=== PATIENT | male | born 1955 | race Caucasian/White ===

== ENCOUNTER 2016-09-17 13:07 | Emergency (ER) | payer OTHER ==
[2016-09-17 15:03] VITALS: BP 119/74
--- NOTE | 2016-09-17 16:15 | UC ---
Respiratory Complaint HPI - HPI Summary HPI Summary: pt c/o of wheezing, cough and "burning" in chest" URI symptoms began ~ 1 week ago. 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 - History of Current Complaint Chief Complaint: UCRespiratory Stated Complaint: SINUS,COUGH-ASTHMA Time Seen by Provider: 09/17/16 15:43 Hx Obtained From: Patient Onset/Duration: Gradual Onset, Lasting Days Timing: Constant Severity Initially: Mild Severity Currently: Mild Character: Cough: Productive Aggravating Factors: Exertion, Deep Breaths, Recumbent Position Associated Signs And Symptoms: Positive: Wheezing, URI, Nasal Congestion - Risk Factors Pseudomonas Risk Factors: Chronic Lung Disease - Allergies/Home Medications Allergies/Adverse Reactions: Allergies Allergy/AdvReac Type Severity Reaction Status Date / Time Aspirin Allergy Difficulty Verified 09/17/16 15:04 Breathing and Hives NSAIDs Allergy Difficulty Verified 09/17/16 15:04 Breathing and Hives Home Medications: Home Medications Mepolizumab [Nucala] 100 mg SUBCUT MONTHLY 09/17/16 [History Confirmed 09/17/16] Montelukast Sodium TAB* [Singulair 10 MG TAB*] 10 mg PO DAILY 09/17/16 [History Confirmed 09/17/16] Tiotropium CAP.INH* [Spiriva CAP.INH*] 1 cap.inh INH DAILY 09/17/16 [History Confirmed 09/17/16] predniSONE TAB* [Deltasone TAB*] 2.5 mg PO DAILY 09/17/16 [History Confirmed 11/28] PMH/Surg Hx/FS Hx/Imm Hx Previously Healthy: No - see PMH Endocrine History Of: Denies: Thyroid Disease Cardiovascular History Of: Denies: Hypertension Respiratory History Of: Reports: Asthma, Pulmonary Embolism - 2014 - on xarelto that was d/c'd by velia in 08/29 and followed by velia. GI/ History Of: Denies: Ulcer Neurological History Of: Denies: CVA Psychological History Of: Denies: Anxiety Cancer History Of: Denies: Lung Cancer - Surgical History Surgical History: Yes Surgery Procedure, Year, and Place: Bilateral Cataract Extraction, 2011;. C3 C4 C5 Fusion and Plate, 2005 - Family History Known Family History: Positive: Cardiac Disease - Social History Lives: With Family Alcohol Use: None Substance Use Type: None Smoking Status (MU): Never Smoked Tobacco - Immunization History Most Recent Influenza Vaccination: July 2015 Review of Systems Constitutional: Fatigue Skin: Negative Eyes: Negative ENT: Negative Respiratory: Shortness Of Breath, Cough Cardiovascular: Negative Gastrointestinal: Negative Genitourinary: Negative Motor: Negative Neurovascular: Negative Musculoskeletal: Negative Neurological: Negative Psychological: Negative All Other Systems Reviewed And Are Negative: Yes Physical Exam Triage Information Reviewed: Yes Appearance: Well-Appearing Vital Signs: Initial Vital Signs Temp 97.5 F 09/17/16 15:00 Pulse 80 09/17/16 15:00 Resp 16 09/17/16 15:00 BP 119/74 09/17/16 15:00 Pulse Ox 99 09/17/16 15:00 Vital Signs Reviewed: Yes Eye Exam: Normal ENT Exam: Other ENT: Positive: Nasal congestion Neck exam: Normal Respiratory Exam: Other Respiratory: Positive: Wheezing Cardiovascular Exam: Normal Musculoskeletal Exam: Normal Neurological Exam: Normal Psychological Exam: Normal Skin Exam: Normal UC Diagnostic Evaluation - Laboratory O2 Sat by Pulse Oximetry: 99 Respiratory Course/Dx - Differential Dx/Diagnosis Differential Diagnosis/HQI/PQRI: Bronchitis, Exacerbation Of COPD Provider Diagnoses: Bronchitis Discharge - Discharge Plan Condition: Stable Disposition: HOME Prescriptions: DOXYcycline CAP(*) [DOXYcycline 100MG CAP(*)] 100 mg PO BID #20 cap Patient Education Materials: Acute Bronchitis (ED) Referrals: Juan You MD [Primary Care Provider] -
== END 2016-09-17 16:20 | disposition home or self-care (01) ==
LOC: UCCORT 13:07
DX: J40 Bronchitis, not specified as acute or chronic (principal); Z98.42 Cataract extraction status, left eye; Z98.41 Cataract extraction status, right eye; Z88.6 Allergy status to analgesic agent
CPT/HCPCS: 99212; G0463

== ENCOUNTER 2019-03-23 13:07 | Emergency (ER) | payer OTHER ==
[2019-03-23 13:43] VITALS: BP 106/56
--- NOTE | 2019-03-23 13:53 | UC ---
Lower Extremity/Ankle HPI - HPI Summary HPI Summary: LEFT FOOT INJURY. 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 PAIN IS NOT IMPROVING. HAS BEEN ICING. - History of Current Complaint Chief Complaint: UCLowerExtremity Stated Complaint: L FOOT INJ Time Seen by Provider: 03/23/19 13:48 Hx Obtained From: Patient Onset/Duration: Sudden Onset, Lasting Days Severity Initially: Severe Severity Currently: Severe Pain Intensity: 9 Aggravating Factor(s): Standing, Ambulation Alleviating Factor(s): Nothing Able to Bear Weight: Yes - Allergies/Home Medications Allergies/Adverse Reactions: Allergies Allergy/AdvReac Type Severity Reaction Status Date / Time acetaminophen Allergy Unknown difficulty Verified 03/23/19 13:36 breathing and itching aspirin Allergy Unknown breathing Verified 03/23/19 13:33 difficultly NSAIDS (Non-Steroidal Allergy Unknown breathing Verified 03/23/19 13:33 Anti-Inflamma difficulty Home Medications: Home Medications predniSONE TAB* [Deltasone TAB*] 5 mg PO DAILY 03/23/19 [History Confirmed 03/23] PMH/Surg Hx/FS Hx/Imm Hx Previously Healthy: Yes - Surgical History Surgical History: Yes Surgery Procedure, Year, and Place: Bilateral Cataract Extraction, 2011;. C3 C4 C5 Fusion and Plate, 2005. SINUS SURGERY- JANUARY 2019 - Family History Known Family History: Positive: None, Cardiac Disease - Social History Alcohol Use: None Substance Use Type: None Smoking Status (MU): Never Smoked Tobacco - Immunization History Most Recent Influenza Vaccination: July 2015 Review of Systems All Other Systems Reviewed And Are Negative: Yes Musculoskeletal: Positive: Arthralgia, Decreased ROM, Edema, Myalgia Physical Exam Triage Information Reviewed: Yes Appearance: Well-Appearing, Well-Nourished, Pain Distress Vital Signs: Initial Vital Signs Temp 99.1 F 03/23/19 13:36 Pulse 58 03/23/19 13:36 Resp 16 03/23/19 13:36 BP 106/56 03/23/19 13:36 Pulse Ox 98 03/23/19 13:36 Vital Signs Reviewed: Yes Eye Exam: Normal ENT Exam: Normal Dental Exam: Normal Neck exam: Normal Respiratory Exam: Normal Cardiovascular Exam: Normal Abdominal Exam: Normal Bowel Sounds: Positive: Present Musculoskeletal: Positive: No Edema, Strength Limited @ - hard to extend toes, ROM Limited @ - with inversion and eversion due to pain, Neurological Exam: Normal Psychological Exam: Normal Skin Exam: Normal Lower Extremity Course/Dx - Course Course Of Treatment: hx obtained, exam performed ,meds reviewed, xray obtained neg for fracture - Differential Dx/Diagnosis Differential Diagnosis/HQI/PQRI: Contusion, Fracture (Closed), Sprain, Strain Provider Diagnosis: Contusion of foot, left Discharge - Sign-Out/Discharge Documenting (check all that apply): Patient Departure All imaging exams completed and their final reports reviewed: No Studies - Discharge Plan Condition: Stable Disposition: HOME Patient Education Materials: Foot Contusion (ED) Referrals: Rock Moreau MD [Primary Care Provider] - Scott Thomas MD [Medical Doctor] - Additional Instructions: 1. use the jesús and post op shoe for support. 2. Hot and cold foot soaks to help increase the circulation 3. follow up with orthopedics if not improving - Billing Disposition and Condition Condition: STABLE Disposition: Home - Attestation Statements Provider Attestation: I was available for consult. This patient was seen by the DINA. The patient was not presented to , seen by or examined by ak -Elton Carvajal MD
--- OUTSIDE RECORDS SUMMARY | 2019-03-23 15:04 | XMS REPORT | Continuity of Care Document ---
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 [employer] Unavailable Rock Moreau MD Primary Care Physician Unavailable Payers Date Identification Numbers Payment Provider Subscriber Policy Number: [id number] [employer] Keegan Graham PayID: [id number] [address] [place] [address] Problems Active Problems Provider Date Arthralgia of the ankle and/or foot Terrance Drake MD Onset: 03/30/2011 Dyspnea Candace Lorenzana ANP Onset: 12/21/2014 Sleep dysfunction with sleep stage Candace Lorenzana ANP Onset: 12/21/2014 disturbance Pulmonary embolism Candace Lorenzana ANP Onset: 12/21/2014 Acute bronchitis Robel Tejeda MD Onset: 12/21/2014 H/O: pulmonary embolus Ary Mondragon DO Onset: 07/28/2015 Asthma without status asthmaticus Ary Mondragon DO Onset: 07/28/2015 Chronic fatigue syndrome Byron Vasquez M.D. Onset: 11/01/2016 Uncomplicated severe persistent asthma Byron Vasquez M.D. Onset: 11/01/2016 Taking medication Byron Vasquez M.D. Onset: 11/01/2016 Hyperlipidemia screening Byron Vasquez M.D. Onset: 11/01/2016 Encounter for screening for nutritional Byron Vasquez M.D. Onset: 11/01/2016 disorder Tic disorder Byron Vasquez M.D. Onset: 11/01/2016 Vitamin D deficiency Byron Vasquez M.D. Onset: 11/18/2016 Headache Byron Vasquez M.D. Onset: 02/10/2017 Sleep disorder Byron Vasquez M.D. Onset: 02/10/2017 Depressive disorder Byron Vasquez M.D. Onset: 02/10/2017 Screening for malignant neoplasm of prostate Byron Vasquez M.D. Onset: 03/20 Immunization Byron Vasquez M.D. Onset: 05/31/2017 Gastroesophageal reflux disease Byorn Vasquez M.D. Onset: 09/01/2017 Benign prostatic hypertrophy with outflow Byron Vasquez M.D. Onset: 2017 obstruction Long-term current use of systemic steroid Byron Vasquez M.D. Onset: 2017 Mild intermittent asthma Marlin Martini PA Onset: 10/23/2018 Allergic rhinitis Marlin Martini PA Onset: 10/23/2018 Exacerbation of intermittent asthma Marlin Martini PA Onset: 11/14/2018 Disorder of bone Rock Moreau MD Onset: 01/17/2019 Family History Date Family Member(s) Observation Comments : (age 86 Years) Father due to Dementia/A-Fib Father Dementia Father Pacemaker : (age 74 Years) Mother due to Heart Attack/Cancer Mother Cancer Mother Arthritis Mother Afib Social History Type Date Description Comments Sex Unknown Marital Status Lives With Lives With Children Occupation [employer] Tobacco Use Start: Unknown Never Smoked Cigarettes ETOH Use Denies alcohol use Tobacco Use Start: Unknown Patient denies history of smoking Recreational Drug Use Denies Drug Use Smoking Status Reviewed: 02/27/19 Patient denies history of smoking Exercise Type/Frequency Does not exercise Allergies, Adverse Reactions, Alerts Active Allergies Reaction Severity Comments Date Aspirin 05/01/2009 Tequin 05/01/2009 NSAIDS unknown 03/28/2014 Advair Diskus 02/09/2016 Nucala rash, fatigue 11/10/2016 Leflunomide Anaphylaxis Severe 11/01/2016 Acetaminophen EXACERBATES HIS ASTHMA 11/01/2016 Inactive Allergies Nsaid 05/01/2009 Medications Active Medications SIG Qnty Indications Ordering Date Provider Fluphenazine HCL 1 tab by mouth 30tabs F95.8 Rock Moreau MD 02/27/2019 every day as 1mg Tablets directed Magnesium 1 tab by mouth 10caps E83.42 Rock Moreau MD 01/17/2019 300mg every day as Capsules directed Calcium 1200 OTC Eddy Michele, 10/23/2018 [id number] Chewtabs Prednisone take 1 tablet once 30tabs Eddy Michele, 06/04/2018 5mg a day. Tablets Omeprazole take 1 tablet 30caps K21.9 Eddy Michele, 08/02/2017 40mg daily[address] Neff Allergy 1 spray both 9.900ml J30.89 Eddy Michele, 08/02/2017 Relief nostrils every day. 50mcg/Act Suspension Nebulizer please provide 1units J45.50 Eddy Michele, 02/10/2017 Kit/Tubing/Mouthpie patient with 1 kit. ce nebulizer, tubing, Kit mouth piece. diagnosis: copd Portable Compressor J45.50 Eddy Michele, 02/10/2017 Nebulizer MD Vences Ventolin HFA Take 2 Puffs Every 8units Eddy Michele, 07/15/2016 6 Hours as Needed 108(90Base) mcg/Act For Shortness Of Aerosol Breath. Nucala 100 mg subcutaneous 1units Eddy Michele, 06/27/2016 100mg every 4 weeks. Solution Rec Epinephrine Use as directed for 2units Eddy Michele, 02/24/2016 severe asthma 0.3mg/0.3ML exacerbation. Solution Auto-Inject Symbicort 1 twice puff twice 10.200gm Eddy Michele, 02/12/2016 a day 160-4.5mcg/Act Aerosol Spiriva Respimat take 2 puffs once 4gm Eddy Michele, 02/12/2016 daily. 1.25mcg/Act Aerosol Singulair take 1 tablet once 90tabs J45.50 Eddy Michele, 02/02/2016 10mg daily. Tablets Vitamin D-[address] Kinney Maximum Strength Pedro/OTC 1000Unit Tablets Albuterol Sulfate nebulized every 6 Unknown hours as needed (2.5mg/3ML) 0.083% Nebulizer History Medications Prednisone take 2 tablet in 10tabs J45.21 Eddy Michele, 11/14/2018 - 20mg Tablets the morning for MD 01/17/2019 five days Azithromycin take two tablets 6tabs Eddy Michele, 11/14/2018 - 250mg today, then one a 01/17/2019 Tablets day for the next four days. Cefuroxime Axetil 1 tab by mouth 14tabs Santo, 10/31/2017 - 500mg twice a day Kelsey Hagan Unknown Tablets Prednisone 2 tab by mouth 10tabs Santo, 10/31/2017 - 20mg Tablets every day for 5 Kelsey Hagan 06/04/2018 days Prednisone take three tablets 90tabs J45.20 Eddy Michele, 10/02/2017 - 2.5mg by mouth once daily 06/04/2018 Tablets Prednisone take 1 tablet 30tabs Eddy Michele, 08/02/2017 - 10mg Tablets daily. 10/02/2017 Prednisone take three tablets 90tabs Eddy Michele, 05/31/2017 - 2.5mg by mouth once daily 08/02/2017 Tablets Dhea 2 by mouth every Byron Vasquez, 03/20/2017 - Tablets day M.D. Unknown Sertraline HCL 1 By Mouth Every 90tabs F32.89 Byron Vasquez, 03/20/2017 - 100mg Day M.D. 01/17/2019 Tablets Vitamin D3 1 by mouth every 90caps Byron Vasquez, 02/10/2017 - 2000Unit day M.D. Unknown Capsules Sertraline HCL 1 by mouth every 30tabs F32.89 Byron Vasquez, 02/10/2017 - 50mg day M.D. 03/20/2017 Tablets Vitamin D 1 tab by mouth once 4caps E55.9 Byron Vasquez, 11/18/2016 - (Ergocalciferol) a week for 4 weeks M.D. 02/10/2017 [id number] Capsules Prednisone take 1 tablet 30tabs Eddy Michele, 11/10/2016 - 10mg Tablets daily. 05/31/2017 Flonase Allergy 1 spray to both 9.900ml Eddy Michele, 11/03/2016 - Relief nostrils daily. MD Kinney 50mcg/Act Suspension Prednisone Take 1 tablet 30tabs Eddy Michele, 09/05/2016 - 2.5mg daily. MD Kinney Tablets Prednisone Take total of 7.5 30tabs Eddy Michele, 08/04/2016 - 5mg Tablets mg once daily. MD Kinney Prednisone Take total of 7.5 30tabs Eddy Michele, 08/04/2016 - 2.5mg mg once daily. 09/05/2016 Tablets Nasal Swab Nasal swab for R69 Eddy Michele, 05/25/2016 - Influenza A/b MD Kinney Nucala 100 mg subcutaneous 1units Eddy iMchele, 04/27/2016 - 100mg Solution every 4 weeks. 05/25/2016 Rec Prednisone Take 1 tablet 3 90tabs Eddy Michele, 03/14/2016 - 5mg Tablets times daily. MD Kinney Prednisone Take 30 mg for 1 35tabs J45.50 Eddy Michele, 02/23/2016 - 10mg Tablets week followed by 20 Unknown mg for 1 week. Prednisone Take 15 mg daily. qs J45.50 Eddy Michele, 02/23/2016 - 10mg Tablets 03/14/2016 Epinephrine Use as directed for 2units J45.50 Eddy Michele, 02/23/2016 - severe asthma 02/24/2016 0.15mg/0.15ML attack. Solution Auto-Inject Prednisone take 40 mg once 20tabs Eddy Michele, 02/17/2016 - 10mg Tablets daily for 5 days. MD Kinney Dulera take 1 puff twice 8.800gm J45.50 Eddy Michele, 02/02/2016 - 200-5mcg/Act daily. rinse mouth MD Kinney Aerosol after use. Cromolyn Sodium four times a day Alanna, 01/08/2016 - via DO Gregoria Banerjee 20mg/2ML Nebulizer Vicodin 1-2 po q4h prn 30tabs Vidal, 03/30/2011 - 5-500mg Tablets Terrance Jarvis MD Unknown Skelaxin prn Vidal, 03/30/2011 - 800mg Tablets Terrance Jarvis MD Unknown Prednisone po qd Vidal, 03/30/2011 - 20mg Tablets Terrance Jarvis MD Unknown Ventolin HFA prn Vidal, 03/30/2011 - Terrance Jarvis MD 07/15/2016 108(90Base) mcg/ac Aerosol Nexium 1 po qd 30caps Vidal, 03/30/2011 - 40mg Capsules DR Terrance Jarvis MD Unknown Vitamin B-12 1 tabl by mouth Unknown - 500mcg daily Unknown Tablets Sub Clonidine HCL TK 1 T PO D Unknown - 0.1mg 03/20/2017 Tablets Ziprasidone HCL 1 cap by mouth Unknown - 20mg daily 02/10/2017 Capsules Metaproterenol 3 Pills Once A Week Unknown - Sulfate Unknown 10mg Tablets Omeprazole 1 by mouth every Unknown - 20mg day 08/02/[address] Newman by mouth every day Unknown - 40mg Tablets 01/08/2016 Xarelto 1 by mouth every Unknown - 20mg Tablets day 01/22/2016 Tamsulosin HCL by mouth every day Unknown - 0.4mg Unknown Capsules Prednisone Take 3 tablets 90tabs Eddy Michele, - 5mg Tablets daily. 08/04/2016 Prevacid Unknown - 03/30/2011 Singulair 1 po qd Unknown - 10mg 07/28/2015 Nasonex Unknown - Unknown Pulmicort Unknown - Unknown Albuter Unknown - Unknown Medications Administered in Office Medication SIG Qnty Indications Ordering Provider Date Injection, mepolizumab, 1mg Eddy Michele MD 09/14/2018 Injection Injection, mepolizumab, 1mg Marlin Martini PA 07/10/2018 Injection Injection, bossmanolizumab, 1mEddy aTn MD 06/04/2018 Injection Injection, mepolizumab, 1mg Eddy Michele MD 03/09/2018 Injection Theraputic Or Diagnostic Eddy Michele MD 03/09/2018 Injection Injection Injection, bossmanolizumanjitb, 1mEddy Tan MD 02/07/2018 Injection Theraputic Or Diagnostic Eddy Michele MD 02/07/2018 Injection Injection Injection, mepolizurosanna, 1mEddy Tan MD 01/02/2018 Injection Theraputic Or Diagnostic Eddy Michele MD 01/02/2018 Injection Injection Injection, mepolizumanjitb, 1mg Eddy Michele MD 12/01/2017 Injection Theraputic Or Diagnostic Eddy Michele MD 12/01/2017 Injection Injection Theraputic Or Diagnostic Eddy Michele MD 11/02/2017 Injection Injection Injection, kristianzurosanna, 1mEddy Tan MD 08/30/2017 Injection Theraputic Or Diagnostic Eddy Michele MD 08/30/2017 Injection Injection Theraputic Or Diagnostic Eddy Michele MD 08/08/2017 Injection Injection Theraputic Or Diagnostic Eddy Michele MD 07/04/2017 Injection Injection Theraputic Or Diagnostic Eddy Michele MD 05/31/2017 Injection Injection Injection, bossmanolizumab, 1mg Eddy Michele MD 03/27/2017 Injection Injection, kristianzumab, 1mg Eddy Michele MD 03/17/2017 Injection Injection, kristianzurosanna, 1mEddy Tan MD 02/09/2017 Injection Injection, mepolizumab, 1mEddy Tan MD 01/10/2017 Injection Injection, bossmanolizumab, 1mg Eddy Michele MD 11/03/2016 Injection Injection, didi, 1mEddy Tan MD 09/05/2016 Injection Depomedrol 40mg/1cc Marisel Pereyra MD 05/01/2009 (methylprednisolone acetate) Injection Immunizations CPT Code Status Date Vaccine Lot # [id number] Given 06/04/2018 Influenza Virus Vaccine, Quadrivalent, 36 Mos+, .5ML [id number] Given 05/31/2017 Influenza Virus Vaccine Quadrivalent Iiv4 Split [id number] Preser Free Id [id number] Given 07/14/2016 Influenza Vaccine (Fluzone) Age 3 And Older Vital Signs Date Vital Result Comment 02/27/2019 4:27pm BP Systolic 116 mmHg BP Diastolic 66 mmHg Heart Rate 79 /min Respiratory Rate 18 /min Height 71 inches 5'11" Weight 215.00 lb BMI (Body Mass Index) 30.0 kg/m2 BSA (Body Surface Area) 2.17 m2 Hood body weight in kilograms 78 kg O2 % BldC Oximetry 97 % Ra 01/17/2019 1:18pm BP Systolic 118 mmHg BP Diastolic 68 mmHg Heart Rate 76 /min Respiratory Rate 18 /min Height 71 inches 5'11" Weight 217.25 lb BMI (Body Mass Index) 30.3 kg/m2 BSA (Body Surface Area) 2.18 m2 Hood body weight in kilograms 78 kg O2 % BldC Oximetry 96 % Ra 11/14/2018 2:11pm BP Systolic Sitting Right Arm 118 mmHg BP Diastolic Sitting Right Arm 92 mmHg Body Temperature 98.1 F Heart Rate 90 /min Respiratory Rate 18 /min Height 71 inches 5'11" Weight 218.00 lb BMI (Body Mass Index) 30.4 kg/m2 BSA (Body Surface Area) 2.19 m2 Hood body weight in kilograms 78 kg O2 % BldC Oximetry 95 % Ora 10/23/2018 8:10am BP Systolic Sitting Right Arm 120 mmHg BP Diastolic Sitting Right Arm 80 mmHg Heart Rate 57 /min Respiratory Rate 16 /min Height 71 inches 5'11" Weight 219.00 lb BMI (Body Mass Index) 30.5 kg/m2 BSA (Body Surface Area) 2.19 m2 Hood body weight in kilograms 78 kg O2 % BldC Oximetry 98 % ra 07/18/2018 9:30am BP Systolic Sitting Left Arm 125 mmHg BP Diastolic Sitting Left Arm 73 mmHg Body Temperature 97.1 F Heart Rate 56 /min Respiratory Rate 18 /min Height 71 inches 5'11" Weight 212.00 lb BMI (Body Mass Index) 29.6 kg/m2 BSA (Body Surface Area) 2.16 m2 Hood body weight in kilograms 78 kg O2 % BldC Oximetry 99 % Ra 04/19/2018 3:42pm BP Systolic Sitting Left Arm 108 mmHg BP Diastolic Sitting Left Arm 74 mmHg Heart Rate 79 /min Respiratory Rate 18 /min Height 71 inches 5'11" Weight 209.00 lb BMI (Body Mass Index) 29.1 kg/m2 BSA (Body Surface Area) 2.15 m2 Hood body weight in kilograms 78 kg O2 % BldC Oximetry 93 % Ora 12/01/2017 10:43am Body Temperature 97.9 F 10/31/2017 2:49pm BP Systolic Sitting Left Arm 107 mmHg BP Diastolic Sitting Left Arm 69 mmHg Body Temperature 98.8 F Heart Rate 80 /min Respiratory Rate 18 /min Height 69.5 inches 5'9.50" Weight 203.00 lb BMI (Body Mass Index) 29.5 kg/m2 BSA (Body Surface Area) 2.09 m2 Hood body weight in kilograms 74 kg O2 % BldC Oximetry 95 % Ra 10/02/2017 1:26pm BP Systolic Sitting Left Arm 105 mmHg BP Diastolic Sitting Left Arm 58 mmHg Heart Rate 74 /min Respiratory Rate 16 /min Height 69.5 inches 5'9.50" Weight 201.00 lb BMI (Body Mass Index) 29.3 kg/m2 BSA (Body Surface Area) 2.08 m2 Hood body weight in kilograms 74 kg O2 % BldC Oximetry 95 % 09/01/2017 2:23pm BP Systolic 117 mmHg BP Diastolic 74 mmHg Heart Rate 74 /min Respiratory Rate 14 /min Height 69.5 inches 5'9.50" Weight 194.38 lb BMI (Body Mass Index) 28.3 kg/m2 BSA (Body Surface Area) 2.05 m2 Hood body weight in kilograms 74 kg O2 % BldC Oximetry 96 % 08/02/2017 2:49pm BP Systolic Sitting Left Arm 130 mmHg BP Diastolic Sitting Left Arm 70 mmHg Heart Rate 72 /min Respiratory Rate 16 /min Height 69.5 inches 5'9.50" Weight 190.00 lb BMI (Body Mass Index) 27.7 kg/m2 BSA (Body Surface Area) 2.03 m2 Hood body weight in kilograms 74 kg O2 % BldC Oximetry 94 % 07/10/2017 2:43pm BP Systolic Sitting Right Arm 136 mmHg BP Diastolic Sitting Right Arm 74 mmHg Heart Rate 82 /min Respiratory Rate 16 /min Height 69.5 inches 5'9.50" Weight 200.00 lb BMI (Body Mass Index) 29.1 kg/m2 BSA (Body Surface Area) 2.08 m2 Hood body weight in kilograms 74 kg O2 % BldC Oximetry 95 % Room air 05/31/2017 12:59pm BP Systolic 101 mmHg BP Diastolic 70 mmHg Heart Rate 88 /min Respiratory Rate 14 /min Height 69.5 inches 5'9.50" Weight 195.50 lb BMI (Body Mass Index) 28.5 kg/m2 BSA (Body Surface Area) 2.06 m2 Hood body weight in kilograms 74 kg O2 % BldC Oximetry 95 % 05/02/2017 2:40pm BP Systolic Sitting Left Arm 110 mmHg BP Diastolic Sitting Left Arm 62 mmHg Heart Rate 84 /min Respiratory Rate 16 /min Height 69.5 inches 5'9.50" Weight 196.00 lb BMI (Body Mass Index) 28.5 kg/m2 BSA (Body Surface Area) 2.06 m2 Hood body weight in kilograms 74 kg O2 % BldC Oximetry 96 % 03/20/2017 10:46am BP Systolic 113 mmHg BP Diastolic 71 mmHg Body Temperature 98.0 F Heart Rate 71 /min Respiratory Rate 18 /min Height 69.5 inches 5'9.50" Weight 199.00 lb BMI (Body Mass Index) 29.0 kg/m2 BSA (Body Surface Area) 2.07 m2 Hood body weight in kilograms 74 kg O2 % BldC Oximetry 96 % 02/10/2017 10:40am BP Systolic 120 mmHg BP Diastolic 79 mmHg Heart Rate 77 /min Respiratory Rate 12 /min Height 69.5 inches 5'9.50" Weight 202.00 lb BMI (Body Mass Index) 29.4 kg/m2 BSA (Body Surface Area) 2.09 m2 Hood body weight in kilograms 74 kg O2 % BldC Oximetry 96 % 12/07/2016 4:07pm BP Systolic Sitting Left Arm 122 mmHg BP Diastolic Sitting Left Arm 70 mmHg Heart Rate 66 /min Respiratory Rate 18 /min Height 69.5 inches 5'9.50" Weight 216.00 lb BMI (Body Mass Index) 31.4 kg/m2 BSA (Body Surface Area) 2.15 m2 11/18/2016 8:40am BP Systolic 108 mmHg BP Diastolic 58 mmHg Heart Rate 88 /min Height 69.5 inches 5'9.50" Weight 207.00 lb BMI (Body Mass Index) 30.1 kg/m2 BSA (Body Surface Area) 2.11 m2 11/01/2016 9:54am BP Systolic 114 mmHg BP Diastolic 70 mmHg Heart Rate 85 /min Respiratory Rate 16 /min Height 69.5 inches 5'9.50" Weight 202.00 lb BMI (Body Mass Index) 29.4 kg/m2 BSA (Body Surface Area) 2.09 m2 Hood body weight in kilograms 74 kg O2 % BldC Oximetry 95 % 10/06/2016 3:32pm BP Systolic Sitting Right Arm 120 mmHg BP Diastolic Sitting Right Arm 76 mmHg Heart Rate 79 /min Respiratory Rate 16 /min Weight 215.00 lb O2 % BldC Oximetry 97 % Ra 06/29/2016 3:20pm BP Systolic Sitting Left Arm 118 mmHg BP Diastolic Sitting Left Arm 72 mmHg Heart Rate 64 /min Respiratory Rate 16 /min Weight 219.00 lb O2 % BldC Oximetry 96 % 05/25/2016 2:49pm BP Systolic 88 mmHg BP Diastolic 66 mmHg Body Temperature 99.7 F Heart Rate 93 /min Respiratory Rate 18 /min Weight 213.00 lb O2 % BldC Oximetry 93 % 02/23/2016 3:59pm BP Systolic Sitting Right Arm 138 mmHg BP Diastolic Sitting Right Arm 84 mmHg Heart Rate 77 /min Respiratory Rate 16 /min Height 70.5 inches 5'10.50" Weight 206.00 lb BMI (Body Mass Index) 29.1 kg/m2 BSA (Body Surface Area) 2.12 m2 O2 % BldC Oximetry 97 % 02/02/2016 4:22pm BP Systolic 114 mmHg BP Diastolic 54 mmHg Heart Rate 68 /min Respiratory Rate 18 /min Height 70.5 inches 5'10.50" Weight 211.00 lb BMI (Body Mass Index) 29.8 kg/m2 BSA (Body Surface Area) 2.15 m2 Hood body weight in kilograms 77 kg O2 % BldC Oximetry 95 % 01/22/2016 1:06pm BP Systolic 115 mmHg BP Diastolic 73 mmHg Body Temperature 97.9 F Heart Rate 75 /min Respiratory Rate 20 /min Weight 216.00 lb O2 % BldC Oximetry 95 % Pain Level 0 01/08/2016 11:02am BP Systolic 132 mmHg BP Diastolic 86 mmHg Body Temperature 98.2 F Heart Rate 81 /min Respiratory Rate 18 /min Weight 208.12 lb O2 % BldC Oximetry 95 % Pain Level 7 07/31/2015 9:50am BP Systolic 116 mmHg BP Diastolic 74 mmHg Body Temperature 98.1 F Heart Rate 62 /min Respiratory Rate 16 /min Height 70 inches 5'10" Weight 213.00 lb BMI (Body Mass Index) 30.6 kg/m2 BSA (Body Surface Area) 2.14 m2 O2 % BldC Oximetry 97 % 07/28/2015 3:56pm BP Systolic Sitting Left Arm 117 mmHg BP Diastolic Sitting Left Arm 71 mmHg Body Temperature 98.0 F Heart Rate 57 /min Respiratory Rate 18 /min Height 70 inches 5'10" Weight 211.50 lb BMI (Body Mass Index) 30.3 kg/m2 BSA (Body Surface Area) 2.14 m2 O2 % BldC Oximetry 96 % 01/16/2015 8:59am BP Systolic Sitting Right Arm 126 mmHg BP Diastolic Sitting Right Arm 82 mmHg Heart Rate 70 /min Respiratory Rate 16 /min Height 70 inches 5'10" Weight 223.00 lb BMI (Body Mass Index) 32.0 kg/m2 BSA (Body Surface Area) 2.19 m2 12/19/2014 9:43am BP Systolic Sitting Right Arm 134 mmHg BP Diastolic Sitting Right Arm 78 mmHg Heart Rate 70 /min Respiratory Rate 16 /min Height 70 inches 5'10" Weight 218.00 lb BMI (Body Mass Index) 31.3 kg/m2 BSA (Body Surface Area) 2.17 m2 03/30/2011 8:44am Height 70 inches 5'10" Weight 226.38 lb BMI (Body Mass Index) 32.5 kg/m2 05/01/2009 8:53am Height 72 inches 6'0" Weight 210.00 lb BMI (Body Mass Index) 28.5 kg/m2 Results Test Date Facility Test Result H/L Range Note Rheumatoid Panel 01/17/2019 [facility] [address] Sedimentation Rate 20 mm/hr Normal 2-45 1, 2 ([facility]) [address] [place] [address] [phone] Uric Acid 6.1 mg/dL Normal 3.5-7.2 Rheumatoid Factor Screen < 10.0 IU/mL Normal 0.0-15.0 C-Reactive Protein,Quant 17.6 mg/L High <3.0 Antinuclear Antibodies, Ifa Negative . 3 Lyme AB[facility] [address] Lyme Total < 0.91 ISR 0.00- 0.90 4 Blot Reflex [address] [facility] AB/[place] [address] [phone] Lyme Disease Antibody,QT,Igm < 0.80 index 0.00-0.79 5 Systemic Lupus 01/17/[address] [facility] [address] Ra Latex <10.0 IU/mL 0.0- 13.9 Erythem. Profil [address] [place], [place] [id number] [phone] Anti-Dna Antibody ([place]) <1 IU/mL 0-9 6 SM Antibody <0.2 AI 0.0-0.9 ECOLOGICAL ECONOMIST Antibody <0.2 AI 0.0-0.9 Sjogrens Antibodies (Ssa) <0.2 AI 0.0-0.9 Antichromatin Antibodies <0.2 AI 0.0-0.9 Sjogrens Antibodies (SSB) <0.2 AI 0.0-0.9 CBC W/Automated 01/17/[address] [facility] [address] White Blood 8.2 K/uL Normal 3.4-10.[address] [place], [place] [id number] [phone] Red Blood Count 3.94 M/uL Low 4.20-5.80 Hemoglobin 11.3 gm/dL Low 12.8-17.0 Hematocrit 35.6 % Low 38.0-48.0 Mean Cell Volume 90.4 fl Normal 80.0-96.0 Mean Corpuscular HGB 28.7 pg Normal 27.0-33.0 Mean Corpuscular HGB Conc 31.7 g/dL Normal 31.7-36.0 Platelet Count 282 K/uL Normal 155-360 Red Cell Distri Width SD 48.1 fl Normal 36-51 Red Cell Distri Width %CV 14.5 % Normal 11.6-15.8 Mean Platelet Volume 11.0 fl High 6.6-10.6 Neut% 77.6 % High 33.0-73.0 Lymph % 15.7 % Low 20.0-42.0 [place] % 5.7 % Normal 0.0-10.0 Eo% 0.1 % Normal 0.0-6.6 Bas% 0.4 % Normal 0.0-1.1 Immature Grans 0.5 % Normal 0.0-5.0 NRBC % 0.0 /100WBC < 10/ 100 WBC Neut# 6.39 K/uL Normal 1.8-7.0 Lymph # 1.29 K/uL Normal 1.0-4.0 [place] # 0.47 K/uL Normal 0.0-0.8 Eos # 0.01 K/uL Normal 0.0-0.5 Baso # 0.03 K/uL Normal 0.0-0.1 Immature Grans Absolute 0.04 K/uL NRBC # 0.00 K/uL HCV Rna Mendy 01/17/2019 [facility] [address] Hepatitis C Negative Negative 7 Qual RFLX Quant [address] [place] [address] [phone] Laboratory test 01/17/[address] [facility] [address] Prostate 5.92 ng/mL < 4.0 [address] [place] [address] Antigen [phone] Laboratory test 01/10/2019 [facility] Folic Acid > 20.0 High 3.1-17.5 [address] ng/[place] [address] [phone] LDL Cholesterol 01/10/2019 [facility] Cholesterol 181 mg/dL <200 10 Profile [address] [place] [address] [phone] Triglycerides 143 mg/dL <150 11 HDL Cholesterol 59 mg/dL >40 12 LDL-Cholesterol 93 mg/dL < 100 13 Laboratory test 01/10/2019 [facility] Magnesium 1.7 mg/dL Low 1.8-2.4 finding [address] [place] [address] [phone] Vitamin B12 1093 pg/mL High 193-986 Vitamin D,25-Hydroxy 31.0 ng/mL 30.0-100.0 14 Comprehensive 01/10/2019 [facility] Glucose 74 mg/dL Normal 74-106 Metabolic Panel [address] [place] [address] [phone] BUN 14 mg/dL Normal 7-18 Creatinine 1.0 mg/dL Normal 0.6-1.3 Glom Filtration Rate, Estimate >60 mL/min >60 If >60 mL/min >60 15 BUN/Creat 14.0 ratio Sodium 142 mmol/L Normal 136-145 Potassium 4.0 mmol/L Normal 3.5-5.1 Chloride 109 mmol/L High 98-107 Carbon Dioxide 27 mmol/L Normal 21-32 Anion Gap 6 mEq/L Low 8-16 Calcium 8.4 mg/dL Low 8.5-10.1 Total Protein 6.8 g/dL Normal 6.4-8.2 Albumin 3.4 g/dL Normal 3.4-5.0 Globulin 3.4 g/dL Normal 1.9-4.3 Alb/Glob 1.0 ratio Bilirubin,Total 0.4 mg/dL Normal 0.2-1.0 Sgot/Ast 36 U/L Normal 15-37 SGPT/Alt 27 U/L Normal 12-78 Alkaline Phosphatase 90 U/L Normal 45-117 CBC W/Automated 01/10/2019 [facility] White Blood 5.9 K/uL Normal 3.4-10.[address] [place], [place] [id number] [phone] Red Blood Count 4.12 M/uL Low 4.20-5.80 Hemoglobin 11.7 gm/dL Low 12.8-17.0 Hematocrit 37.3 % Low 38.0-48.0 Mean Cell Volume 90.5 fl Normal 80.0-96.0 Mean Corpuscular HGB 28.4 pg Normal 27.0-33.0 Mean Corpuscular HGB Conc 31.4 g/dL Low 31.7-36.0 Platelet Count 255 K/uL Normal 155-360 Red Cell Distri Width SD 47.7 fl Normal 36-51 Red Cell Distri Width %CV 14.4 % Normal 11.6-15.8 Mean Platelet Volume 10.3 fl Normal 6.6-10.6 Neut% 59.1 % Normal 33.0-73.0 Lymph % 27.8 % Normal 20.0-42.0 [place] % 11.6 % High 0.0-10.0 Eo% 0.9 % Normal 0.0-6.6 Bas% 0.3 % Normal 0.0-1.1 Immature Grans 0.3 % Normal 0.0-5.0 NRBC % 0.0 /100WBC < 10/ 100 WBC Neut# 3.46 K/uL Normal 1.8-7.0 Lymph # 1.63 K/uL Normal 1.0-4.0 [place] # 0.68 K/uL Normal 0.0-0.8 Eos # 0.05 K/uL Normal 0.0-0.5 Baso # 0.02 K/uL Normal 0.0-0.1 Immature Grans Absolute 0.02 K/uL NRBC # 0.00 K/uL Laboratory 02/20/2018 [facility] Vitamin 28.2 Low 30.0-100.0 16, test finding [address] D,25-Hydroxy ng/mL [address] [place] [address] [phone] CMP Panel (14 02/20/2018 [facility] Glucose 92 Normal 74-106 Test) [address] mg/dL [place], [place] [id number] [phone] BUN 23 mg/dL High 7-18 Creatinine 0.9 mg/dL Normal 0.6-1.3 Glom Filtration Rate, Estimate >60 mL/min >60 If >60 mL/min >60 18 BUN/Creat 25.5 ratio Sodium 142 mmol/L Normal 136-145 Potassium 3.9 mmol/L Normal 3.5-5.1 Chloride 105 mmol/L Normal 98-107 Carbon Dioxide 26 mmol/L Normal 21-32 Anion Gap 11 mEq/L Normal 8-16 Calcium 8.5 mg/dL Normal 8.5-10.1 Total Protein 7.1 g/dL Normal 6.4-8.2 Albumin 3.5 g/dL Normal 3.4-5.0 Globulin 3.6 g/dL Normal 1.9-4.3 Alb/Glob 1.0 ratio Bilirubin,Total 0.5 mg/dL Normal 0.2-1.0 Sgot/Ast 22 U/L Normal 15-37 SGPT/Alt 19 U/L Normal 12-78 Alkaline Phosphatase 74 U/L Normal 45-117 CBC W/Auto Diff 02/20/2018 [facility] White Blood 7.3 K/uL Normal 3.4-10.5 & PLT [address] [place] [address] [phone] Red Blood Count 4.57 M/uL Normal 4.20-5.80 Hemoglobin 13.2 gm/dL Normal 12.8-17.0 Hematocrit 40.7 % Normal 38.0-48.0 Mean Cell Volume 89.1 fl Normal 80.0-96.0 Mean Corpuscular HGB 28.9 pg Normal 27.0-33.0 Mean Corpuscular HGB Conc 32.4 g/dL Normal 31.7-36.0 Platelet Count 200 K/uL Normal 155-360 Red Cell Distri Width SD 46.3 fl Normal 36-51 Red Cell Distri Width %CV 14.6 % Normal 11.6-15.8 Mean Platelet Volume 10.7 fL High 6.6-10.6 Neut% 53.6 % Normal 33.0-73.0 Lymph % 36.3 % Normal 20.0-42.0 [place] % 9.0 % Normal 0.0-10.0 Eo% 0.8 % Normal 0.0-6.6 Bas% 0.3 % Normal 0.0-1.1 Neut# 3.89 K/uL Normal 1.8-7.0 Lymph # 2.63 K/uL Normal 1.0-4.0 [place] # 0.65 K/uL Normal 0.0-0.8 Eos # 0.06 K/uL Normal 0.0-0.5 Baso # 0.02 K/uL Normal 0.0-0.1 Laboratory test 02/20/2018 [facility] Magnesium 2.0 mg/dL Normal 1.8-2.4 finding [address] [place] [address] [phone] Vitamin B12 435 pg/mL Normal 193-986 Dehydroepiandrosterone Sulfate 40.5 g/dL Low 48.9-344.2 19 CBS W/Automated 02/09/2017 [facility] White 8.0 K/uL Normal 3.4-10.5 20 Diff [address] [place] [address] Count [phone] Red Blood Count 4.88 M/uL Normal 4.20-5.80 Hemoglobin 14.0 gm/dL Normal 12.8-17.0 Hematocrit 42.7 % Normal 38.0-48.0 Mean Cell Volume 87.5 fl Normal 80.0-96.0 Mean Corpuscular HGB 28.7 pg Normal 27.0-33.0 Mean Corpuscular HGB Conc 32.8 g/dL Normal 31.7-36.0 Platelet Count 254 K/uL Normal 150-400 Red Cell Distri Width SD 47.3 fl Normal 36-51 Red Cell Distri Width %CV 14.9 % Normal 11.6-15.8 Mean Platelet Volume 11.0 fL High 6.6-10.6 Neut% 84.1 % High 33.0-73.0 Lymph % 9.3 % Low 20.0-42.0 [place] % 5.5 % Normal 0.0-10.0 Eo% 0.6 % Normal 0.0-6.6 Bas% 0.5 % Normal 0.0-1.1 Neut# 6.76 K/uL Normal 1.8-7.0 Lymph # 0.75 K/uL Low 1.0-4.0 [place] # 0.44 K/uL Normal 0.0-0.8 Eos # 0.05 K/uL Normal 0.0-0.5 Baso # 0.04 K/uL Normal 0.0-0.1 Comprehensive 02/09/2017 [facility] Glucose 93 mg/dL Normal 74-106 Metabolic Panel [address] [place] [address] [phone] BUN 19 mg/dL High 7-18 Creatinine 1.0 mg/dL Normal 0.6-1.3 Glom Filtration Rate, Estimate >60 mL/min >60 If >60 mL/min >60 21 BUN/Creat 19.0 ratio Sodium 141 mmol/L Normal 136-145 Potassium 4.1 mmol/L Normal 3.5-5.1 Chloride 107 mmol/L Normal 98-107 Carbon Dioxide 28 mmol/L Normal 21-32 Anion Gap 6 mEq/L Low 8-16 Calcium 9.1 mg/dL Normal 8.5-10.1 Total Protein 6.9 g/dL Normal 6.4-8.2 Albumin 3.9 g/dL Normal 3.4-5.0 Globulin 3.0 g/dL Normal 1.9-4.3 Alb/Glob 1.3 ratio Bilirubin,Total 0.7 mg/dL Normal 0.2-1.0 Sgot/Ast 25 U/L Normal 15-37 SGPT/Alt 22 U/L Normal 12-78 Alkaline Phosphatase 90 U/L Normal 45-117 Laboratory test 02/09/2017 [facility] Magnesium 1.8 mg/dL Normal 1.8-2.4 finding [address] [place] [address] [phone] Vitamin D,25-Hydroxy 29.9 ng/mL Low 30.0-100.0 22 Ua RFX Micro & Culture 11/03/2016 [facility] Urine Color YELLOW Yellow [address] [place] [address] [phone] Urine Clarity CLOUDY Clear Urine Glucose - Dipstick NEGATIVE mg/dL Negative Urine Bilirubin - Dipstick NEGATIVE Negative Urine Ketone NEGATIVE mg/dL Negative Urine Specific Talent >=1.030 Normal 1.010-1.030 Urine Blood NEGATIVE Negative Urine PH 5.5 Low 6.5-7.5 Urine Protein - Dipstick NEGATIVE mg/dL Negative Urine Urobilinogen - Dipstick 0.2 E.U./dL Normal 0.2-1.0 Urine Nitrite - Dipstick NEGATIVE Negative Urine Leuk Esterase NEGATIVE Negative Ebv Acute 11/02/2016 [facility] Ebv AB <36.0 U/mL 0.0-35.9 24, [address] Vca,[place] [address] [phone] Ebv Early Antigen AB, IgG <9.0 U/mL 0.0-8.9 26 Ebv AB Vca,Igg >600.0 U/mL High 0.0-17.9 27 Ebv Nuclear Antigen AB, Igg 303.0 U/mL High 0.0-17.9 28 Ebv Interpretation (SEE NOTE) 29 Lyme Igg & Igm By 11/02/2016 [facility] Lyme AB Igg By Western . Western Blot [address] [place] [address] [phone] P93 AB Absent . P66 AB Present Abnormal . P58 AB Absent . P45 AB Present Abnormal . P41 AB Present Abnormal . P39 AB Absent . P30 AB Absent . P28 AB Absent . P23 AB Absent . P18 AB Present Abnormal . Lyme Igg WB Interpretation Negative . 30 Lyme AB Igm By Western Blot . P41 AB Absent . P39 AB Absent . P23 AB Absent . Lyme Igm WB Interpretation Negative . 31 TSH Reflex 11/02/2016 [facility] Thyroid Stim 0.95 uIU/mL Normal 0.30-4.20 FT4 And/Or [address] Horm[place] FT3 [place] [address] [phone] Reflex add FT3? Y Reflex add FT4? Y Comprehensive 11/02/2016 [facility] Glucose 94 mg/dL Normal 74-106 Metabolic Panel [address] [place] [address] [phone] BUN 22 mg/dL High 7-18 Creatinine 1.0 mg/dL Normal 0.6-1.3 Glom Filtration Rate, Estimate >60 mL/min >60 If >60 mL/min >60 32 BUN/Creat 22.0 ratio Sodium 142 mmol/L Normal 136-145 Potassium 3.9 mmol/L Normal 3.5-5.1 Chloride 107 mmol/L Normal 98-107 Carbon Dioxide 26 mmol/L Normal 21-32 Anion Gap 9 mEq/L Normal 8-16 Calcium 8.5 mg/dL Normal 8.5-10.1 Total Protein 7.0 g/dL Normal 6.4-8.2 Albumin 3.5 g/dL Normal 3.4-5.0 Globulin 3.5 g/dL Normal 1.9-4.3 Alb/Glob 1.0 ratio Bilirubin,Total 0.3 mg/dL Normal 0.2-1.0 Sgot/Ast 27 U/L Normal 15-37 SGPT/Alt 21 U/L Normal 12-78 Alkaline Phosphatase 82 U/L Normal 45-117 Reflex add FT3? Y Reflex add FT4? Y Magnesium 11/02/2016 [facility] Magnesium 2.0 mg/dL Normal 1.8-2.[address] [place] [address] [phone] Reflex add FT3? Y Reflex add FT4? Y CBS W/Automated 11/02/2016 [facility] White Blood 5.8 K/uL Normal 3.4-10.[address] [place] [address] [phone] Red Blood Count 4.85 M/uL Normal 4.20-5.80 Hemoglobin 13.7 gm/dL Normal 12.8-17.0 Hematocrit 42.4 % Normal 38.0-48.0 Mean Cell Volume 87.4 fl Normal 80.0-96.0 Mean Corpuscular HGB 28.2 pg Normal 27.0-33.0 Mean Corpuscular HGB Conc 32.3 g/dL Normal 31.7-36.0 Platelet Count 269 K/uL Normal 150-400 Red Cell Distri Width SD 43.9 fl Normal 36-51 Red Cell Distri Width %CV 13.9 % Normal 11.6-15.8 Mean Platelet Volume 10.7 fL High 6.6-10.6 Neut% 50.9 % Normal 33.0-73.0 Lymph % 38.6 % Normal 20.0-42.0 [place] % 8.8 % Normal 0.0-10.0 Eo% 1.2 % Normal 0.0-6.6 Bas% 0.5 % Normal 0.0-1.1 Neut# 2.93 K/uL Normal 1.8-7.0 Lymph # 2.23 K/uL Normal 1.0-4.0 [place] # 0.51 K/uL Normal 0.0-0.8 Eos # 0.07 K/uL Normal 0.0-0.5 Baso # 0.03 K/uL Normal 0.0-0.1 Vitamin B12 11/02/2016 [facility] Vitamin B12 353 pg/mL Normal 193-[address] [place] [address] [phone] Reflex add FT3? Y Reflex add FT4? Y Laboratory 11/02/2016 [facility] Vitamin B1 117.1 66.5-200.0 33 test finding [address] (Thiamine),WB nmol/L [place], [place] [id number] [phone] Vitamin D,25-Hydroxy 16.7 ng/mL Low 30.0-100.0 34 HDL Cholesterol 11/02/2016 [facility] HDL Cholesterol 69 mg/dL >[address] [place] [address] [phone] Reflex add FT3? Y Reflex add FT4? Y Direct LDL 11/02/2016 [facility] LDL Chol. 113 mg/dL High 0-[address] (Direct) [place], [place] [id number] [phone] Triglycerides 11/02/2016 [facility] Triglycerides 93 mg/dL <150 36 [address] [place], [place] [id number] [phone] Reflex add FT3? Y Reflex add FT4? Y CBS W/Automated 10/06/2016 [facility] White 8.4 K/uL Normal 3.4-10.5 [address] [place] [address] Count [phone] Red Blood Count 4.56 M/uL Normal 4.20-5.80 Hemoglobin 12.9 gm/dL Normal 12.8-17.0 Hematocrit 41.0 % Normal 38.0-48.0 Mean Cell Volume 89.9 fl Normal 80.0-96.0 Mean Corpuscular HGB 28.3 pg Normal 27.0-33.0 Mean Corpuscular HGB Conc 31.5 g/dL Low 31.7-36.0 Platelet Count 228 K/uL Normal 150-400 Red Cell Distri Width SD 43.5 fl Normal 36-51 Red Cell Distri Width %CV 13.6 % Normal 11.6-15.8 Mean Platelet Volume 10.9 fL High 6.6-10.6 Neut% 58.8 % Normal 33.0-73.0 Lymph % 28.5 % Normal 20.0-42.0 [place] % 11.2 % High 0.0-10.0 Eo% 1.0 % Normal 0.0-6.6 Bas% 0.5 % Normal 0.0-1.1 Neut# 4.95 K/uL Normal 1.8-7.0 Lymph # 2.40 K/uL Normal 1.0-4.0 [place] # 0.94 K/uL High 0.0-0.8 Eos # 0.08 K/uL Normal 0.0-0.5 Baso # 0.04 K/uL Normal 0.0-0.1 Influenza A/B 05/25/2016 [facility] Influenza A Negative Normal (Negative) [address] Antigen [place], [place] [id number] [phone] Influenza B Antigen Negative Normal (Negative) 39 @[facility] Req #: MAN REQ CBS W/Automated 05/25/2016 [facility] White Blood 16.5 K/uL High 3.4-10.[address] [place] [address] [phone] Red Blood Count 4.79 M/uL Normal 4.20-5.80 Hemoglobin 14.1 gm/dL Normal 12.8-17.0 Hematocrit 44.5 % Normal 38.0-48.0 Mean Cell Volume 92.9 fl Normal 80.0-96.0 Mean Corpuscular HGB 29.4 pg Normal 27.0-33.0 Mean Corpuscular HGB Conc 31.7 g/dL Normal 31.7-36.0 Platelet Count 221 K/uL Normal 150-400 Red Cell Distri Width SD 48.2 fl Normal 36-51 Red Cell Distri Width %CV 14.7 % Normal 11.6-15.8 Mean Platelet Volume 10.5 fL Normal 6.6-10.6 Neut% 84.2 % High 33.0-73.0 Lymph % 7.5 % Low 17.0-56.0 [place] % 7.3 % Normal 0.0-10.0 Eo% 0.8 % Normal 0.0-5.0 Bas% 0.2 % Normal 0.1-1.0 Neut# 13.91 K/uL High 1.8-7.0 Lymph # 1.24 K/uL Low 1.8-7.0 [place] # 1.21 K/uL High 0.0-0.8 Eos # 0.13 K/uL Normal 0.0-0.5 Baso # 0.04 K/uL Low 0.1-0.2 @[facility] Pat Id: [id number] @[facility] Req #: [id number] Comprehensive Metabolic 05/25/2016 [facility] Glucose 111 mg/dL High 74-106 Panel [address] [place], [place] [id number] [phone] BUN 20 mg/dL High 7-18 Creatinine 1.1 mg/dL Normal 0.6-1.3 Glom Filtration Rate, Estimate >60 mL/min Normal >60 If >60 mL/min Normal >60 40 BUN/Creat 18.1 ratio Normal Sodium 137 mmol/L Normal 136-145 Potassium 4.1 mmol/L Normal 3.5-5.1 Chloride 103 mmol/L Normal 98-107 Carbon Dioxide 29 mmol/L Normal 21-32 Anion Gap 5 mEq/L Low 8-16 Calcium 10.1 mg/dL Normal 8.5-10.1 Total Protein 7.1 g/dL Normal 6.4-8.2 Albumin 3.7 g/dL Normal 3.4-5.0 Globulin 3.4 g/dL Normal 1.9-4.3 Alb/Glob 1.1 ratio Normal Bilirubin,Total 1.0 mg/dL Normal 0.2-1.0 Sgot/Ast 19 U/L Normal 15-37 SGPT/Alt 22 U/L Normal 12-78 Alkaline Phosphatase 62 U/L Normal 45-117 @[facility] Pat Id: [id number] @[facility] Req #: [id number] Is Patient Fasting? Fasting Slide Review 05/25/2016 [facility] Slide Review . Normal 41 [address] [place] [address] [phone] @[facility] Pat Id: [id number] @[facility] Req #: [id number] Laboratory test finding 04/11/2016 N2N/CCD Import BUN/Creatinine Ratio 22.8 Blood Urea Nitrogen 16 7-18 Calcium Level 8.7 8.5-10.1 Carbon Dioxide Level 25 21-32 Chloride Level 110 High 98-107 Glucose Screen 133 High 74-106 Mean Corpuscular Hemoglobin 29.0 27.0-33.0 Mean Corpuscular Hemoglobin Concent 31.7 31.7-36.0 Mean Corpuscular Volume 91.6 80.0-96.0 Potassium Level 4.2 3.5-5.1 RDW Coefficient of Variation 14.1 11.6-15.8 Sodium Level 142 136-145 Basic Metabolic Panel 04/11/2016 [facility] Glucose 133 mg/dL High 74-106 42 [address] [place], [place] [address] [phone] BUN 16 mg/dL Normal 7-18 Creatinine 0.7 mg/dL Normal 0.6-1.3 Glom Filtration Rate, Estimate >60 mL/min Normal >60 If >60 mL/min Normal >60 43 BUN/Creat 22.8 ratio Normal Sodium 142 mmol/L Normal 136-145 Potassium 4.2 mmol/L Normal 3.5-5.1 Chloride 110 mmol/L High 98-107 Carbon Dioxide 25 mmol/L Normal 21-32 Anion Gap 7 mEq/L Low 8-16 Calcium 8.7 mg/dL Normal 8.5-10.1 Is Patient Fasting? Non-Fasting CBC 04/11/2016 [facility] White Blood Count 10.2 K/uL Normal 3.4-10.5 [address] [place] [address] [phone] Red Blood Count 4.03 M/uL Low 4.20-5.80 Hemoglobin 11.7 gm/dL Low 12.8-17.0 Hematocrit 36.9 % Low 38.0-48.0 Mean Cell Volume 91.6 fl Normal 80.0-96.0 Mean Corpuscular HGB 29.0 pg Normal 27.0-33.0 Mean Corpuscular HGB Conc 31.7 g/dL Normal 31.7-36.0 Platelet Count 276 K/uL Normal 150-400 Red Cell Distri Width %CV 14.1 % Normal 11.6-15.8 Mean Platelet Volume 11.0 fL High 6.6-10.6 CBS W/Automated 04/10/2016 [facility] White Blood 10.0 K/uL Normal 3.4-10.[address] [place] [address] [phone] Red Blood Count 4.29 M/uL Normal 4.20-5.80 Hemoglobin 12.8 gm/dL Normal 12.8-17.0 Hematocrit 39.3 % Normal 38.0-48.0 Mean Cell Volume 91.6 fl Normal 80.0-96.0 Mean Corpuscular HGB 29.8 pg Normal 27.0-33.0 Mean Corpuscular HGB Conc 32.6 g/dL Normal 31.7-36.0 Platelet Count 248 K/uL Normal 150-400 Red Cell Distri Width SD 46.0 fl Normal 36-51 Red Cell Distri Width %CV 14.0 % Normal 11.6-15.8 Mean Platelet Volume 11.3 fL High 6.6-10.6 Neut% 91.1 % High 33.0-73.0 Lymph % 5.0 % Low 17.0-56.0 [place] % 3.9 % Normal 0.0-10.0 Eo% 0.0 % Normal 0.0-5.0 Bas% 0.0 % Low 0.1-1.0 Neut# 9.14 K/uL High 1.8-7.0 Lymph # 0.50 K/uL Low 1.8-7.0 [place] # 0.39 K/uL Normal 0.0-0.8 Eos # 0.00 K/uL Normal 0.0-0.5 Baso # 0.00 K/uL Low 0.1-0.2 Basic Metabolic Panel 04/10/2016 [facility] Glucose 197 mg/dL High 74-[address] [place] [address] [phone] BUN 18 mg/dL Normal 7-18 Creatinine 0.9 mg/dL Normal 0.6-1.3 Glom Filtration Rate, Estimate >60 mL/min Normal >60 If >60 mL/min Normal >60 44 BUN/Creat 20.0 ratio Normal Sodium 140 mmol/L Normal 136-145 Potassium 4.0 mmol/L Normal 3.5-5.1 Chloride 108 mmol/L High 98-107 Carbon Dioxide 24 mmol/L Normal 21-32 Anion Gap 8 mEq/L Normal 8-16 Calcium 8.7 mg/dL Normal 8.5-10.1 Is Patient Fasting? Non-Fasting Slide Review 04/10/2016 [facility] Slide Review . Normal [address] [place] [address] [phone] Laboratory test 04/10/2016 N2N/CCD Import Basophils # 0.00 Low 0.1-0. finding (Auto) 2 Basophils (%) (Auto) 0.0 Low 0.1-1.0 Eosinophils # (Auto) 0.00 0.0-0.5 Eosinophils (%) (Auto) 0.0 0.0-5.0 Lymphocytes # (Auto) 0.50 Low 1.8-7.0 Lymphocytes (%) (Auto) 5.0 Low 17.0-56.0 Manual Slide Review (Hematology) . Monocytes # (Auto) 0.39 0.0-0.8 Monocytes (%) (Auto) 3.9 0.0-10.0 Neutrophils # (Auto) 9.14 High 1.8-7.0 Neutrophils (%) (Auto) 91.1 High 33.0-73.0 Red Cell Distribution Width 46.0 36-51 CBS W/Automated 04/09/2016 [facility] White Blood 9.0 K/uL Normal 3.4-10.[address] [place] [address] [phone] Red Blood Count 4.22 M/uL Normal 4.20-5.80 Hemoglobin 12.3 gm/dL Low 12.8-17.0 Hematocrit 38.7 % Normal 38.0-48.0 Mean Cell Volume 91.7 fl Normal 80.0-96.0 Mean Corpuscular HGB 29.1 pg Normal 27.0-33.0 Mean Corpuscular HGB Conc 31.8 g/dL Normal 31.7-36.0 Platelet Count 238 K/uL Normal 150-400 Red Cell Distri Width SD 46.1 fl Normal 36-51 Red Cell Distri Width %CV 14.0 % Normal 11.6-15.8 Mean Platelet Volume 10.5 fL Normal 6.6-10.6 Neut% 87.0 % High 33.0-73.0 Lymph % 9.1 % Low 17.0-56.0 [place] % 3.8 % Normal 0.0-10.0 Eo% 0.0 % Normal 0.0-5.0 Bas% 0.1 % Normal 0.1-1.0 Neut# 7.84 K/uL High 1.8-7.0 Lymph # 0.82 K/uL Low 1.8-7.0 [place] # 0.34 K/uL Normal 0.0-0.8 Eos # 0.00 K/uL Normal 0.0-0.5 Baso # 0.01 K/uL Low 0.1-0.2 Laboratory test 04/09/2016 [facility] Lactic Acid 1.2 mmol/L Normal 0.4-1.9 finding [address] [place] [address] [phone] Basic Metabolic 04/09/2016 [facility] Glucose 128 mg/dL High 74-106 Panel [address] [place] [address] [phone] BUN 17 mg/dL Normal 7-18 Creatinine 0.8 mg/dL Normal 0.6-1.3 Glom Filtration Rate, Estimate >60 mL/min Normal >60 If >60 mL/min Normal >60 46 BUN/Creat 21.2 ratio Normal Sodium 140 mmol/L Normal 136-145 Potassium 4.4 mmol/L Normal 3.5-5.1 Chloride 108 mmol/L High 98-107 Carbon Dioxide 27 mmol/L Normal 21-32 Anion Gap 5 mEq/L Low 8-16 Calcium 8.3 mg/dL Low 8.5-10.1 Is Patient Fasting? Non-Fasting Laboratory test 04/09/2016 N2N/CCD Import Lactic Acid 1.2 0.4-1.9 finding Level Laboratory test 04/09/2016 [facility] Troponin-I < 0.015 Normal [address] ng/[place] [address] [phone] Laboratory test 04/09/2016 [facility] Legionella Negative Normal Negative [address] Antigen,[place] [address] [phone] Streptococcus 04/09/2016 [facility] Specimen Urine Normal . Pneumoniae Ag,Ur [address] Source [place], [place] [id number] [phone] Streptococcus Pneumoniae Ag,Ur NEGATIVE Normal Negative Body Fluid Culture, Sterile Not Indicated Normal . Organism Id Not indicated. Normal . Please Note: (SEE NOTE) Normal 49 Laboratory test 04/08/2016 N2N/CCD Import Alanine Aminotransferase 20 12 -78 finding (Alt/SGPT) Albumin 3.3 Low 3.4-5.0 Albumin/Globulin Ratio 1.0 Alkaline Phosphatase 61 45-117 Aspartate Amino Transf (Ast/Sgot) 17 15-37 Globulin 3.4 1.9-4.3 Total Bilirubin 0.6 0.2-1.0 Total Creatine Kinase 85 39-308 Total Protein 6.7 6.4-8.2 Legionella 04/08/2016 [facility] Legionella Specimen Id: [id number] Culture IDR <SEE NOTE> [place] [address] [phone] Laboratory test 04/08/2016 N2N/CCD Import Blood Gas Patient 87 finding Heart Rate Blood Gas Patient Status Resting Blood Gas Position Sitting Up In Bed Oxygen Saturation (Pulse Oximetry) 94 93-98 Continuous Oximetry 04/08/2016 [facility] Oximetry 94 % Normal 93-[address] [place], [place] [id number] [phone] Fio2 21 Normal 21-100 Heart Rate 87 BPM Normal Patient Status RESTING Normal Patient Position SITTING UP IN BE <SEE NOTE> Normal 51 Laboratory test finding 04/08/2016 N2N/CCD Import Aerobic Blood No Growth Culture Anaerobic Blood Culture No Growth Blood Culture 04/08/2016 [facility] Blood Culture NO GROWTH: FINAL [address] Aerobic <SEE NOTE> [place], [place] [id number] [phone] Blood Culture Anaerobic NO GROWTH: FINAL <SEE NOTE> 53 Laboratory test finding 04/08/2016 N2N/CCD Import Aerobic Blood No Growth Culture Anaerobic Blood Culture No Growth Blood Culture 04/08/2016 [facility] Blood Culture NO GROWTH: FINAL [address] Aerobic <SEE NOTE> [place] [address] [phone] Blood Culture Anaerobic NO GROWTH: FINAL <SEE NOTE> 55 Laboratory test 04/08/2016 N2N/CCD Import Urine Bilirubin Negative Negative finding Urine Glucose (Ua) Negative Negative Urine Ketones Negative Negative Urine Leukocyte Esterase Negative Negative Urine Nitrite Negative Negative Urine Protein 30 High Negative Urine Urobilinogen 0.2 0.2-1.0 Urine Culture 04/08/2016 [facility] Urine Culture URETHRAL MOE [address] [place] [address] [phone] Quantity 10,000 - 50,000 <SEE NOTE> Normal 56 Urine Screen 04/08/2016 [facility] Urine Color YELLOW Normal Yellow [address] [place] [address] [phone] Urine Clarity CLEAR Normal Clear Urine Glucose - Dipstick NEGATIVE mg/dL Normal Negative Urine Bilirubin - Dipstick NEGATIVE Normal Negative Urine Ketone NEGATIVE mg/dL Normal Negative Urine Specific Talent 1.025 Normal 1.010-1.030 Urine Blood NEGATIVE Normal Negative Urine PH 6.0 Low 6.5-7.5 Urine Protein - Dipstick 30 mg/dL High Negative Urine Urobilinogen - Dipstick 0.2 E.U./dL Normal 0.2-1.0 Urine Nitrite - Dipstick NEGATIVE Normal Negative Urine Leuk Esterase NEGATIVE Normal Negative Source: URINE, CLEAN CAT <SEE NOTE> 57 Laboratory test 04/08/2016 [facility] Troponin-I < 0.015 Normal 58 finding [address] ng/[place] [address] [phone] Laboratory test 02/05/2016 N2N/CCD Import Allergen See Note 59 finding Reference Ranges Allergens,Zone 1 02/05/2016 [facility] mRast Class See Note [address] (Text Only) [place] [address] [phone] D Pteronyssinus <0.10 Jhoef7fX/L D Farinae Mite <0.10 Fiays9lN/L Cat Hair/Dander <0.10 Wkqxm8cU/L Dog Hair/Dander <0.10 Tnvbe8fH/L Bluegrass,[place] 0.98 ClassIIkU/L High Bermuda Grass <0.10 Kyhkj3rI/L Bahia Grass 0.13 Class0/IkU/L High Cockroach,Greek <0.10 Clexi4sF/L Penicillium Not <0.10 Eykby4oC/L Cladosporium Herbarum <0.10 Qmfny6xI/L Apergillis Fumigatus Ige <0.10 Dsndo7hA/L Mucor Racemosus <0.10 Vfdjr0dH/L Alternaria Tenuis <0.10 Inpqk5uV/L Stemphylium Bot <0.10 Juvme6bX/L Birch,White <0.10 Uceyj8wS/L Solen,White <0.10 Rfren8hJ/L Elm,Greek (White) <0.10 Pxgxx2hU/L Marshall,White <0.10 Rdvvq5wE/L Hazelnut Tree T004 Ige <0.10 Xijnu0eI/L [place],White <0.10 Qyfnm9iY/L [place] Boro,White <0.10 Igabi7nH/L Tyrone,Mountain <0.10 Uwnpi1pK/L Ragweed,Short/ <0.10 Xupwi7lM/L Mugwort <0.10 Htvem5tR/L Plantain,Hebrew <0.10 Qkkoo8tK/L Pigweed,Rough <0.10 Dxzsr4sZ/L [place] (DO <0.10 Kzcju3yP/L Nettle <0.10 Izkyc0cO/L Maple/[place] Ige T001 <0.10 Cbakz1mE/L 61 Laboratory test 02/02/2016 [facility] Surgical SEE RESULT 62 finding [phone] Interface Order BELOW 5-Hiaa,Quant 24 01/25/2016 [facility] 5-Hiaa, Urine 2.[address] Undefinedmg/L [place], [place] [id number] [phone] 5-Hiaa, Urine, 24 HR 3.8 mg/24hr 0.0-14.9 63 Laboratory test finding 01/25/2016 N2N/CCD Import Urine 5-Hiaa 24 3.8 0.0-14.9 Hour Urine 5-Hiaa mg/L 2.6 Undefined Laboratory test 01/22/2016 [facility] Serotonin,Serum 19 ng/mL Low 21-321 [address] [place] [address] [phone] Laboratory test 01/22/2016 N2N/CCD Import Serotonin 19 Low 21-321 finding Laboratory test 01/13/2016 [facility] Tryptase 2.3 ug/L 2.2-13.2 finding [address] [place] [address] [phone] Immunoglobulin E,Total 19 IU/mL 0-100 Immunoglobulins 01/13/2016 [facility] Immunoglobulin [phone] A/G/M, QN, Ser [address] G,Quant,Serum mg/[place] [address] [phone] Immunoglobulin A 81 mg/dL Low 90-386 Immunoglobulin M 132 mg/dL 20-172 65 Laboratory test 01/13/2016 [facility] C-Reactive 7.35 <3.0 finding 134 [facility] Protein,Cardiac mg/[place] [address] [phone] Comprehensive 01/13/2016 [facility] Glucose 80 mg/dL 74-106 Metabolic Panel [address] [place] [address] [phone] BUN 20 mg/dL High 7-18 Creatinine 1.0 mg/dL 0.6-1.3 Glom Filtration Rate, Estimate >60 mL/min >60 If >60 mL/min >60 66 BUN/Creat 20.0 ratio Sodium 140 mmol/L 136-145 Potassium 3.9 mmol/L 3.5-5.1 Chloride 108 mmol/L High 98-107 Carbon Dioxide 22 mmol/L 21-32 Anion Gap 10 mEq/L 8-16 Calcium 8.6 mg/dL 8.5-10.1 Total Protein 6.6 g/dL 6.4-8.2 Albumin 3.7 g/dL 3.4-5.0 Globulin 2.9 g/dL 1.9-4.3 Alb/Glob 1.3 ratio Bilirubin,Total 0.6 mg/dL 0.2-1.0 Sgot/Ast 45 U/L High 15-37 SGPT/Alt 36 U/L 12-78 Alkaline Phosphatase 67 U/L 45-117 Laboratory test 01/13/2016 [facility] Rheumatoid < 10.0 0.0-15.[address] Factor Screen IU/[place] [address] [phone] CBC W/Automated 01/13/2016 [facility] White Blood 8.8 K/uL 3.4-10.[address] [place] [address] [phone] Red Blood Count 4.36 M/uL 4.20-5.80 Hemoglobin 12.8 gm/dL 12.8-17.0 Hematocrit 39.6 % 38.0-48.0 Mean Cell Volume 90.8 fl 80.0-96.0 Mean Corpuscular HGB 29.4 pg 27.0-33.0 Mean Corpuscular HGB Conc 32.3 g/dL 31.7-36.0 Platelet Count 262 K/uL 150-400 Red Cell Distri Width SD 46.1 fl 36-51 Red Cell Distri Width %CV 14.2 % 11.6-15.8 Mean Platelet Volume 11.3 fL High 6.6-10.6 Neut% 83.7 % High 33.0-73.0 Lymph % 9.7 % Low 17.0-56.0 [place] % 5.8 % 0.0-10.0 Eo% 0.6 % 0.0-5.0 Bas% 0.2 % 0.1-1.0 Neut# 7.34 K/uL High 1.8-7.0 Lymph # 0.85 K/uL Low 1.8-7.0 [place] # 0.51 K/uL 0.0-0.8 Eos # 0.05 K/uL 0.0-0.5 Baso # 0.02 K/uL Low 0.1-0.2 Laboratory test 01/13/2016 [facility] Slide Review . [address] [place] [address] [phone] Laboratory test 01/13/2016 N2N/CCD Import Basophils # 0.02 Low 0.1-0.2 finding (Auto) Basophils (%) (Auto) 0.2 0.1-1.0 Carbon Dioxide Level 22 21-32 Eosinophils # (Auto) 0.05 0.0-0.5 Eosinophils (%) (Auto) 0.6 0.0-5.0 Immunoglobulin E 19 0-100 Lymphocytes # (Auto) 0.85 Low 1.8-7.0 Lymphocytes (%) (Auto) 9.7 Low 17.0-56.0 Manual Slide Review (Hematology) . Monocytes # (Auto) 0.51 0.0-0.8 Monocytes (%) (Auto) 5.8 0.0-10.0 Neutrophils # (Auto) 7.34 High 1.8-7.0 Neutrophils (%) (Auto) 83.7 High 33.0-73.0 RDW Coefficient of Variation 14.2 11.6-15.8 Red Cell Distribution Width 46.1 36-51 Sodium Level 140 136-145 Differential WBC 07/28/2015 [facility] Total Cells 100 #CELLS Confirm [address] [place] [address] [phone] Band% 3 % 0-8 Neutrophils% 74 % High 33-73 Lymph% 16 % Low 17-56 Monocyte% 5 % 0-10 Eosinophil% 2 % 0-5 Platelet Estimate NORMAL Anisocytosis 0-1+ Differential Comment LRG PLTS SEEN Laboratory test 07/28/2015 [facility] C-Reactive 4.75 mg/L <3.0 [address] Protein,Cardiac [place], [place] [id number] [phone] Slide Review DIFF ORDERED Comprehensive Metabolic 07/28/2015 [facility] Glucose 90 mg/dL 74-[address] [place], [place] [id number] [phone] BUN 22 mg/dL High 7-18 Creatinine 0.8 mg/dL 0.6-1.3 Glom Filtration Rate, Estimate >60 mL/min >60 If >60 mL/min >60 69 BUN/Creat 27.5 ratio Sodium 137 mmol/L 136-145 Potassium 4.8 mmol/L 3.5-5.1 Chloride 105 mmol/L 98-107 Carbon Dioxide 24 mmol/L 21-32 Anion Gap 8 mEq/L 8-16 Calcium 8.8 mg/dL 8.5-10.1 Total Protein 6.9 g/dL 6.4-8.2 Albumin 3.5 g/dL 3.4-5.0 Globulin 3.4 g/dL 1.9-4.3 Alb/Glob 1.0 ratio Bilirubin,Total 0.4 mg/dL 0.2-1.0 Sgot/Ast 32 U/L 15-37 SGPT/Alt 25 U/L 12-78 Alkaline Phosphatase 80 U/L 45-117 CBS W/Automated 07/28/2015 [facility] White Blood 10.4 K/uL 3.4-10.[address] [place] [address] [phone] Red Blood Count 4.59 M/uL 4.20-5.80 Hemoglobin 13.4 gm/dL 12.8-17.0 Hematocrit 42.0 % 38.0-48.0 Mean Cell Volume 91.5 fl 80.0-96.0 Mean Corpuscular HGB 29.2 pg 27.0-33.0 Mean Corpuscular HGB Conc 31.9 g/dL 31.7-36.0 Platelet Count 260 K/uL 150-400 Red Cell Distri Width SD 46.3 fl 36-51 Red Cell Distri Width %CV 14.2 % 11.6-15.8 Mean Platelet Volume 11.3 fL High 6.6-10.6 Neut% 83.6 % High 33.0-73.0 Lymph % 9.8 % Low 17.0-56.0 [place] % 5.4 % 0.0-10.0 Eo% 0.9 % 0.0-5.0 Bas% 0.3 % 0.1-1.0 Neut# 8.68 K/uL High 1.8-7.0 Lymph # 1.02 K/uL Low 1.8-7.0 [place] # 0.56 K/uL 0.0-0.8 Eos # 0.09 K/uL 0.0-0.5 Baso # 0.03 K/uL Low 0.1-0.2 CBC W/Automated Diff 11/11/2014 [facility] White Blood 9.2 K/uL 3.4-10.[address] [place] [address] [phone] Red Blood Count 3.96 M/uL Low 4.20-5.80 Hemoglobin 12.2 gm/dL Low 12.8-17.0 Hematocrit 37.9 % Low 38.0-48.0 Mean Cell Volume 95.7 fl 80.0-96.0 Mean Corpuscular HGB 30.8 pg 27.0-33.0 Mean Corpuscular HGB Conc 32.2 g/dL 31.7-36.0 Platelet Count 226 K/uL 150-400 Red Cell Distri Width SD 46.6 fl 36-51 Red Cell Distri Width %CV 13.7 % 11.6-15.8 Mean Platelet Volume 11.2 fL High 6.6-10.6 Neut% 62.2 % 33.0-73.0 Lymph % 26.0 % 17.0-56.0 [place] % 9.9 % 0.0-10.0 Eo% 1.8 % 0.0-5.0 Bas% 0.1 % 0.1-1.0 Neut# 5.73 K/uL 1.8-7.0 Lymph # 2.40 K/uL 1.8-7.0 [place] # 0.91 K/uL High 0.0-0.8 Eos # 0.17 K/uL 0.0-0.5 Baso # 0.01 K/uL Low 0.1-0.2 Laboratory test 11/11/2014 [facility] C-Reactive 4.3 mg/L <3.0 finding [address] [facility] Protein,[place] [address] [phone] Comprehensive 11/11/2014 [facility] Glucose 88 mg/dL 74-106 Metabolic Panel [address] [place] [address] [phone] BUN 15 mg/dL 7-18 Creatinine 0.9 mg/dL 0.6-1.3 Glom Filtration Rate, Estimate >60 mL/min >60 If >60 mL/min >60 70 BUN/Creat 16.6 ratio Sodium 142 mmol/L 136-145 Potassium 3.8 mmol/L 3.5-5.1 Chloride 108 mmol/L High 98-107 Carbon Dioxide 28 mmol/L 21-32 Anion Gap 6 mEq/L Low 8-16 Calcium 8.1 mg/dL Low 8.5-10.1 Total Protein 5.6 g/dL Low 6.4-8.2 Albumin 2.7 g/dL Low 3.4-5.0 Globulin 2.9 g/dL 1.9-4.3 Alb/Glob 0.9 ratio Bilirubin,Total 0.1 mg/dL Low 0.2-1.0 Sgot/Ast 15 U/L 15-37 SGPT/Alt 24 U/L 12-78 Alkaline Phosphatase 59 U/L 45-117 Blood Culture 11/10/2014 [facility] Blood Culture Aerobic See Note 71 [address] [place] [address] [phone] Blood Culture Anaerobic See Note 72 Blood Culture 11/10/2014 [facility] Blood Culture Aerobic See Note 73 [address] [place] [address] [phone] Blood Culture Anaerobic See Note 74 1 M79.643 Z12.5 2 This result was obtained with an ESR method that is not based on the standard Westergren Method. When comparing results obtained from the traditional Westergren ESR and this method it is important to refer to the reference range for each method. Method: Capillary Photometry 3 Negative <1:80 Borderline 1:80 Positive >1:80 Performed at: [address] [id number] [employer] Inspector: Alyssa Duke MD, Phone: [phone] Performed at: [address] [id number] [employer] Inspector: Aurelio Lang MD, Phone: [phone] 4 Negative <0.91 Equivocal 0.91 - 1.09 Positive >1.09 5 Negative <0.80 Equivocal 0.80 - 1.19 Positive >1.19 IgM levels may peak at 3-6 weeks post infection, then gradually decline. Performed at: [address] [id number] [employer] Inspector: Alyssa Duke MD, Phone: [phone] 6 Negative <5 Equivocal 5 - 9 Positive >9 7 Negative: HCV RNA Not Detected 8 THIS ASSAY IS NOT INTENDED A CANCER SCREENING TEST The concentration of PSA in a given specimen, determined with assays from different manufacturers, can vary due to differences in assay methods and reagent specificity. Values obtained from different assay methods cannot be used interchangeably. Method: Siemens Anbado Video [place] Chemiluminescent immunoassay. 9 Z79.52, E55.9, Z13.220 10 Reference Guidelines*: Desirable: ........... < 200 mg/dL Borderline High: ..... 200-239 mg/dL High: ................ >=240 mg/dL * The National Cholesterol Education Program (NCEP) 11 Reference Guidelines*: Normal: ............. < 150 mg/dL Borderline High: .... 150-199 mg/dL High: ............... 200-499 mg/dL Very High: .......... > 500 mg/dL * Source: National Cholesterol Education Program (NCEP) 12 Reference Guidelines*: Low HDL: ..... < 40 mg/dL Normal: ..... 40-60 mg/dL Desirable: ... > 60 mg/dL *The National Cholesterol Education Program(NCEP) 13 Reference Guidelines*: Optimal:........... <100 mg/dL Near Optimal....... 100-129 mg/dL Borderline High.... 130-159 mg/dL High............... 160-189 mg/dL Very High.......... >=190 mg/dL * Source: National Cholesterol Education Program (NCEP) 14 Vitamin D deficiency has been defined by the [place] [employer] and an Endocrine Society practice guideline as a level of serum 25-OH vitamin D less than 20 ng/mL (1,2). The Endocrine Society went on to further define vitamin D insufficiency as a level between 21 and 29 ng/mL (2). 1. IOM ([place] of [employer]). 2010. Dietary reference intakes for calcium and D. [place]: The National Academies Press. 2. Yolande MF, Mariah NC, Marvin ABRAMS, et al. Evaluation, treatment, and prevention of vitamin D deficiency: an Endocrine Society clinical practice guideline. JCEM. 2010; 96(7):1911-30. Performed at: RN - [facility] [address] [id number] [employer] Inspector: Alyssa Duke MD, Phone: [phone] 15 Note: Persistent reduction for 3 months or more in an eGFR <60 mL/min/1.73 m2 defines CKD. Patients with eGFR values >/=60 mL/min/1.73 m2 may also have CKD if evidence of persistent proteinuria is present. The original MDRD equation for estimated GFR is not valid for patients less than 18 years of age. Additional information may be found at www.[email or web address]. 16 E55.9 B36.106 17 Vitamin D deficiency has been defined by the [place] [employer] and an Endocrine Society practice guideline as a level of serum 25-OH vitamin D less than 20 ng/mL (1,2). The Endocrine Society went on to further define vitamin D insufficiency as a level between 21 and 29 ng/mL (2). 1. IOM ([place] [employer]). 2010. Dietary reference intakes for calcium and D. [place]: The National Academies Press. 2. Yolande MF, Mariah NC, Marvin ABRAMS, et al. Evaluation, treatment, and prevention of vitamin D deficiency: an Endocrine Society clinical practice guideline. JCEM. 2010; 96(7):1911-30. Performed at: - [facility] [address] [id number] [employer] Inspector: Alyssa Duke MD, Phone: [phone] 18 Note: Persistent reduction for 3 months or more in an eGFR <60 mL/min/1.73 m2 defines CKD. Patients with eGFR values >/=60 mL/min/1.73 m2 may also have CKD if evidence of persistent proteinuria is present. The original MDRD equation for estimated GFR is not valid for patients less than 18 years of age. Additional information may be found at www.kdoqi.org. 19 Performed at: - [facility] [address] [id number] [employer] Inspector: Alyssa Duke MD, Phone: [phone] 20 Z79.899 E55.9 21 Note: Persistent reduction for 3 months or more in an eGFR <60 mL/min/1.73 m2 defines CKD. Patients with eGFR values >/=60 mL/min/1.73 m2 may also have CKD if evidence of persistent proteinuria is present. The original MDRD equation for estimated GFR is not valid for patients less than 18 years of age. Additional information may be found at www.kdoqi.org. 22 Vitamin D deficiency has been defined by the [place] [employer] and an Endocrine Society practice guideline as a level of serum 25-OH vitamin D less than 20 ng/mL (1,2). The Endocrine Society went on to further define vitamin D insufficiency as a level between 21 and 29 ng/mL (2). 1. IOM ([place] [employer]). 2010. Dietary reference intakes for calcium and D. [place]: The National Academies Press. 2. Yolande MF, Mariah TESFAYE, Marvin ABRAMS, et al. Evaluation, treatment, and prevention of vitamin D deficiency: an Endocrine Society clinical practice guideline. JCEM. 2010; 96(7):1911-30. Performed at: RN - [facility] [address] [id number] [employer] Inspector: Alyssa Duke MD, Phone: [phone] 23 R53.82 Z79.899 Z13.21 Z13.220 24 R53.82, Z79.899, Z13.21, Z13.220 25 Negative <36.0 Equivocal 36.0 - 43.9 Positive >43.9 26 Negative < 9.0 Equivocal 9.0 - 10.9 Positive >10.9 27 Negative <18.0 Equivocal 18.0 - 21.9 Positive >21.9 28 Negative <18.0 Equivocal 18.0 - 21.9 Positive >21.9 29 EBV Interpretation Chart Interpretation EBV-IgM EA(D)-IgG VCA-IgG EBNA-IgG EBV Seronegative - - - - Early Phase + - - - Acute Primary + +or- + - Infection Convalescence/Past - +or- + + Infection Reactivated +or- + + + Infection + Antibody Present - Antibody Absent 30 Positive: 5 of the following Borrelia-specific bands: 18,23,28,30,39,41,45,58, 66, and 93. Negative: No bands or banding patterns which do not meet positive criteria. 31 Note: An equivocal or positive EIA result followed by a negative Western Blot result is considered NEGATIVE. An equivocal or positive EIA result followed by a positive Western Blot is considered POSITIVE by the CDC. Positive: 2 of the following bands: 23,39 or 41 Negative: No bands or banding patterns which do not meet positive criteria. Criteria for positivity are those recommended by CDC/ASTPHLD. p23=Osp C, h79=ewunjehhv Note: Sera from individuals with the following may cross react in the Lyme Western Blot assays: other spirochetal diseases (periodontal disease, leptospirosis, relapsing fever, yaws, and pinta); connective autoimmune (Rheumatoid Arthritis and Systemic Lupus Erythematosus and also individuals with Antinuclear Antibody); other infections (Warden Spotted Fever; Ceci-Martell Virus, and Cytomegalovirus). Performed at: - [facility] [address] [id number] [employer] Inspector: Alyssa Duke MD, Phone: [phone] Performed at: [facility] [address] [id number] [employer] Inspector: Ghanshyam Pérez MD, Phone: [phone] 32 Note: Persistent reduction for 3 months or more in an eGFR <60 mL/min/1.73 m2 defines CKD. Patients with eGFR values >/=60 mL/min/1.73 m2 may also have CKD if evidence of persistent proteinuria is present. The original MDRD equation for estimated GFR is not valid for patients less than 18 years of age. Additional information may be found at www.[email or web address]. 33 1 EDTA WHOLE BLOOD SENT FROZEN AND PROTECTED FROM LIGHT PER LAB.TOW 34 Vitamin D deficiency has been defined by the [place] [employer] and an Endocrine Society practice guideline as a level of serum 25-OH vitamin D less than 20 ng/mL (1,2). The Endocrine Society went on to further define vitamin D insufficiency as a level between 21 and 29 ng/mL (2). 1. IOM ([place] [employer]). 2010. Dietary reference intakes for calcium and D. [place]: The National Academies Press. 2. Yolande MF, Mariah NC, Marvin ABRAMS, et al. Evaluation, treatment, and prevention of vitamin D deficiency: an Endocrine Society clinical practice guideline. JCEM. 2010; 96(7):1911-30. Performed at: - [facility] [address] [id number] [employer] Inspector: Alyssa Duke MD, Phone: [phone] 35 Reference Guidelines*: Low HDL: ..... < 40 mg/dL Normal: ..... 40-60 mg/dL Desirable: ... > 60 mg/dL *The National Cholesterol Education Program(NCEP) 36 Reference Guidelines*: Normal: ............. < 150 mg/dL Borderline High: .... 150-199 mg/dL High: ............... 200-499 mg/dL Very High: .......... > 500 mg/dL * Source: National Cholesterol Education Program (NCEP) 37 J45.50 38 R69, 39 Please Note: A POSITIVE result for influenza A and/or B antigen does not rule out a co-infection with other pathogens or identify any specific influenza A virus subtype. A NEGATIVE result for influenza A and/or B antigen does not preclude influenza virus infection and should not be the sole basis for treatment or other management decisions, since the antigen present in the specimen may be below the detection limit of the test. A NEGATIVE result is PRESUMPTIVE and it is recommended these results be confirmed by virus culture or an FDA-cleared influenza A and B molecular assay. Method: [employer] Chromatographic immunoassay 40 Note: Persistent reduction for 3 months or more in an eGFR <60 mL/min/1.73 m2 defines CKD. Patients with eGFR values >/=60 mL/min/1.73 m2 may also have CKD if evidence of persistent proteinuria is present. The original MDRD equation for estimated GFR is not valid for patients less than 18 years of age. Additional information may be found at www.kdoqi.org. 41 Instrument flagged sample for slide review. Less than 10% Bands seen, no other immature WBC's seen. RBC morphology essentially normal. Platelet estimate=NORMAL 42 CAP 43 Note: Persistent reduction for 3 months or more in an eGFR <60 mL/min/1.73 m2 defines CKD. Patients with eGFR values >/=60 mL/min/1.73 m2 may also have CKD if evidence of persistent proteinuria is present. The original MDRD equation for estimated GFR is not valid for patients less than 18 years of age. Additional information may be found at www.kdoqi.org. 44 Note: Persistent reduction for 3 months or more in an eGFR <60 mL/min/1.73 m2 defines CKD. Patients with eGFR values >/=60 mL/min/1.73 m2 may also have CKD if evidence of persistent proteinuria is present. The original MDRD equation for estimated GFR is not valid for patients less than 18 years of age. Additional information may be found at www.[email or web address]. 45 Instrument flagged sample for slide review. Less than 10% Bands seen, no other immature WBC's seen. RBC morphology essentially normal. Platelet estimate=NORMAL 46 Note: Persistent reduction for 3 months or more in an eGFR <60 mL/min/1.73 m2 defines CKD. Patients with eGFR values >/=60 mL/min/1.73 m2 may also have CKD if evidence of persistent proteinuria is present. The original MDRD equation for estimated GFR is not valid for patients less than 18 years of age. Additional information may be found at www.[email or web address]. 47 0.0 - 0.045 ng/mL: Normal 0.046 - 0.5 ng/mL: Suggestive 0.6 - 1.5 ng/mL: Consistent 48 Performed at: [facility] [employer] [id number] [employer] Inspector: Ghanshyam Pérez MD, Phone: [phone] 49 [employer] guidelines require a culture to be performed on CSF specimens negative by bacterial antigen testing (CAP [id number]). Performed at: [address] [id number] [employer] Inspector: Ghanshyam Pérez MD, Phone: [phone] 50 Specimen Id: [id number] Submitter's Specimen Id: [id number] Specimen Type: Sputum FINAL IDENTIFICATION No Legionella pneumophila DNA was detected. 04/20/2016 No Legionella species DNA was detected. 04/20/2016 Major Tests Performed Legionella pneumophila, L. pneumophila serogroup 1, L. petr, L. micadadei, L. species DNA multiplex by real-time PCR: Not detected TEST PERFORMED AT: [facility] [address] [place] [phone] SITTING UP IN BED 52 NO GROWTH: FINAL REPORT 53 NO GROWTH: FINAL REPORT 54 NO GROWTH: FINAL REPORT 55 NO GROWTH: FINAL REPORT 56 10,000 - 50,000 CFU/mL 57 URINE, CLEAN CATCH 58 0.0 - 0.045 ng/mL: Normal 0.046 - 0.5 ng/mL: Suggestive 0.6 - 1.5 ng/mL: Consistent 59 Levels of Specific IgE Class Description of Class ----- < 0.10 0 Negative 0.10 - 0.31 0/I Equivocal/Low 0.32 - 0.55 I Low 0.56 - 1.40 II Moderate 1.41 - 3.90 III High 3.91 - 19.00 IV Very High 19.01 - >100.00 Very High 60 Levels of Specific IgE Class Description of Class ----- < 0.10 0 Negative 0.10 - 0.31 0/I Equivocal/Low 0.32 - 0.55 I Low 0.56 - 1.40 II Moderate 1.41 - 3.90 III High 3.91 - 19.00 IV Very High 19.01 - 100.00 V Very High >100.00 Very High 61 Test(s) [id number] Cockroach, Greek; 740377- F274-GhE Vicki Markham were developed and had performance characteristics determined by [facility]. These tests have not been cleared or approved by the U.S. Food and Drug Administration. The FDA has determined that such clearance or approval is not necessary. These tests are used for clinical purposes. These should not be regarded as investigational or for research. Performed at: [address] [id number] [employer] Inspector: Ghanshyam Pérez MD, Phone: [phone] 62 SEE RESULT BELOW Name: KEEGAN GRAHAM : [address]: Julian Bellamy MD Acct: [id number] Unit: [id number] AGE: 60 Location: ENDO Re02/02/16 SEX: M Status: REG REF SPEC: [id number] YEIMI: 02/02/16-[address] [facility] [address]: Julian Bellamy MD REQ: [id number] RECD: 02/02/16-1436 STATUS: NICOLLE FIORE DR: Juan Mondragon DO _ ORDERED: LEVEL IV FINAL DIAGNOSIS Gastroesophageal junction, biopsy: -- Squamous and columnar mucosa with chronic and focal acute inflammation, reactive epithelial change, and intestinal metaplasia. -- Negative for dysplasia. CLINICAL HISTORY Dr. Kent - min increased IgA, CRP "very high", CT chest and abdomen, Dr. Juno Ferguson - 2010 omeprazole three months, hydrocodone/Oxycontin. POST-OPERATIVE DIAGNOSIS EGD - larynx symmetric, Esophagus - normal EG loose open at 40, 43 irregular Z line biopsy x 3, Stomach - large hiatal hernia, duodenum - normal x 30 cm. Conclusions/Plan: 1) Large hiatal hernia, 2) normal otherwise, 3) Gagger, 4) Asthma. GROSS DESCRIPTION The specimen is received in formalin labeled, Biopsy [place], and consists of three arthur-pink to arthur-white irregular soft tissue fragments measuring 0.4 x 0.3 x 0.2 cm, 0.4 x 0.3 x 0.2 cm and 0.8 x 0.2 x 0.1 cm, which are entirely submitted in one cassette. Signed (signature on file) Meghana Bernstein MD 1258 END OF REPORT * ML=Testing performed at Main Lab DEPARTMENT OF PATHOLOGY, [address] [place] [address] Valeriy Thacker M.D. Director [facility] # [id number] 63 This test was developed and its performance characteristics determined by [facility]. It has not been cleared or approved by the Food and Drug Administration. Performed at: [address] [id number] [employer] Inspector: Ghanshyam Pérez MD, Phone: [phone] 64 Performed at: [address] [id number] [employer] Inspector: Ghanshyam Pérez MD, Phone: [phone] 65 Performed at: [address] [id number] [employer] Inspector: Alyssa Duke MD, Phone: [phone] Performed at: [address] [id number] [employer] Inspector: Ghanshyam Pérez MD, Phone: [phone] 66 Note: Persistent reduction for 3 months or more in an eGFR <60 mL/min/1.73 m2 defines CKD. Patients with eGFR values >/=60 mL/min/1.73 m2 may also have CKD if evidence of persistent proteinuria is present. The original MDRD equation for estimated GFR is not valid for patients less than 18 years of age. Additional information may be found at www.[email or web address]. 67 Instrument flagged sample for slide review. Less than 10% Bands seen, no other immature WBC's seen. RBC morphology essentially normal. Platelet estimate=NORMAL 68 SPECIMEN IS SLIGHTLY HEMOLYZED 69 Note: Persistent reduction for 3 months or more in an eGFR <60 mL/min/1.73 m2 defines CKD. Patients with eGFR values >/=60 mL/min/1.73 m2 may also have CKD if evidence of persistent proteinuria is present. The original MDRD equation for estimated GFR is not valid for patients less than 18 years of age. Additional information may be found at www.[email or web address]. 70 Note: Persistent reduction for 3 months or more in an eGFR <60 mL/min/1.73 m2 defines CKD. Patients with eGFR values >/=60 mL/min/1.73 m2 may also have CKD if evidence of persistent proteinuria is present. The original MDRD equation for estimated GFR is not valid for patients less than 18 years of age. Additional information may be found at [email or web address]. 71 NO GROWTH: FINAL REPORT 72 NO GROWTH: FINAL REPORT 73 NO GROWTH: FINAL REPORT 74 NO GROWTH: FINAL REPORT Procedures Date Code Description Status 09/14/2018 05866 Theraputic Or Diagnostic Injection Completed 08/14/2018 [id number] Bone Mineral Density Test Completed 07/10/2018 43922 Theraputic Or Diagnostic Injection Completed 06/04/2018 44634 Theraputic Or Diagnostic Injection Completed 03/09/2018 11252 Theraputic Or Diagnostic Injection Completed 02/07/2018 29834 Theraputic Or Diagnostic Injection Completed 01/02/2018 54499 Theraputic Or Diagnostic Injection Completed 12/01/2017 89459 Theraputic Or Diagnostic Injection Completed 11/02/2017 46628 Theraputic Or Diagnostic Injection Completed 08/30/2017 13061 Theraputic Or Diagnostic Injection Completed 08/08/2017 73584 Theraputic Or Diagnostic Injection Completed 07/04/2017 76090 Theraputic Or Diagnostic Injection Completed 05/31/2017 60598 Theraputic Or Diagnostic Injection Completed 04/28/2017 68137 Theraputic Or Diagnostic Injection Completed 03/27/2017 77749 Theraputic Or Diagnostic Injection Completed 03/17/2017 83562 Theraputic Or Diagnostic Injection Completed 02/09/2017 60156 Theraputic Or Diagnostic Injection Completed 01/10/2017 03824 Theraputic Or Diagnostic Injection Completed 11/03/2016 30280 Theraputic Or Diagnostic Injection Completed 09/05/2016 80847 Theraputic Or Diagnostic Injection Completed 04/08/2016 80988 Echocardiogram Complete Completed 02/10/2016 15826 Bronchospasm Provocation Evaluation Multi Spirometric Completed Determinati 02/10/2016 99560 Spirometry Completed 12/30/2014 87979 Stress Test Interpre And Report Only Completed 12/30/2014 86732 Stress Test Physician Super Only Completed 12/30/2014 47274 Stress Test Physician Super Only Completed 12/30/2014 58883 Myocardial Imaging Tomographic Multiple Study AT Rest Completed Or Stress 12/19/2014 44644 EKG-Tracing And Report Completed 12/19/2014 66382 EKG-Tracing And Report Completed 11/07/2014 08904 Echocardiogram Complete Completed 07/28/2009 94765 Radiology, Knee 3 Views Completed 06/19/2009 99100 Radiology, Finger(S), Two Views Completed 05/01/2009 75380 Radiology, Hand: Minimum Three Views Completed 05/01/2009 24646 Asp/Injection small joint/bursa (ie-fingers,toes) Completed 01/10/2008 01263 Doppler ECHO Color Flow Mapping Completed 01/10/2008 83611 Doppler Echocardiogram Complete Completed 01/10/2008 00821 Echocariogram 2D Complete Completed Encounters Type Date Location Provider Dx Diagnosis Office Visit 02/27/2019 [facility] Moreau MD F95.8 Other tic 4:[address] disorders M25.549 Pain in joints of unspecified hand Office Visit 01/17/2019 1:15p [facility] Moreau, M79.643 Pain in Willian BEYER MD unspecified hand E83.42 Hypomagnesemia M85.80 Oth disrd of bone density and structure, unspecified site K21.9 Gastro-esophageal reflux disease without esophagitis J45.50 Severe persistent asthma, uncomplicated Z12.5 Encounter for screening for malignant neoplasm of prostate F95.8 Other tic disorders Office Visit 11/14/2018 2:00p Pulmonology Marlin Martini J45.21 Mild intermittent PA asthma with (acute) exacerbation Office Visit 10/23/2018 8:00a Pulmonology Marlin Martini J45.20 Mild intermittent PA asthma, uncomplicated J30.89 Other allergic rhinitis Office Visit 07/18/2018 9:20a Primary Care Byron Vasquez J45.909 Unspecified asthma, Office M.D. 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 Office Visit 10/31/2017 Primary Care Santo, J20.9 Acute bronchitis, 2:30p Office Kelsey Hagan unspecified Office Visit 10/02/2017 Pulmonology Eddy Michele J45.20 Mild intermittent 1:15p MD asthma, uncomplicated J30.89 Other allergic rhinitis Z79.52 skilled nursing (current) use of systemic steroids R53.83 Other fatigue Office Visit 09/01/2017 2:20p Primary Care Byron Vasquez, E55.9 Vitamin D Office M.DBerenice deficiency, unspecified J45.50 Severe persistent asthma, uncomplicated K21.9 Gastro-esophageal reflux disease without esophagitis Z79.899 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 N40.1 Benign prostatic hyperplasia with lower urinary tract symp Office Visit 08/02/2017 2:45p Pulmonology Eddy Michele J45.50 Severe persistent MD asthma, uncomplicated Z79.51 skilled nursing (current) use of inhaled steroids J30.89 Other allergic rhinitis K21.9 Gastro-esophageal reflux disease without esophagitis R59.0 Localized enlarged lymph nodes Office Visit 07/10/2017 2:30p Pulmonology Eddy Michele J45.50 Severe persistent MD asthma, uncomplicated Z79.899 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 R61 Generalized hyperhidrosis Office Visit 05/31/2017 1:00p Primary Care Byron Vasquez E55.9 Vitamin D Office Kelsey deficiency, unspecified R53.82 Chronic fatigue, unspecified Z23 Encounter for immunization J45.50 Severe persistent asthma, uncomplicated F95.9 Tic disorder, unspecified Z79.899 Other mcc (current) drug therapy Office Visit 05/02/2017 2:30p PulmonJohn Horne.50 Severe persistent MD Eddy asthma, uncomplicated Office Visit 03/27/2017 10:25a PulmonJohn Horne.50 Severe persistent MD Eddy asthma, uncomplicated Office Visit 03/20/2017 10:40a Primary Care Pedro F32.89 Other specified Office Kelsey Matthews depressive episodes E55.9 Vitamin D deficiency, unspecified R53.82 Chronic fatigue, unspecified J45.50 Severe persistent asthma, uncomplicated Z79.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 Office Visit 10/06/2016 3:15p PulmonEddy Horne J45.Carlos Alberto Severe persistent MD asthma, uncomplicated R53.82 Chronic fatigue, unspecified Office Visit 06/29/2016 3:30p PulmonEddy Horne J45.50 Severe persistent MD asthma, uncomplicated Z86.711 Personal history of pulmonary embolism Office Visit 05/25/2016 2:30p PulmonEddy Horne MD R69 Illness, unspecified J45.50 Severe persistent asthma, uncomplicated Z86.711 Personal history of pulmonary embolism Office Visit 04/09/2016 3:37p Pulmonology Leny J84.114 Acute interstitial MD Eddy pneumonitis Office Visit 02/23/2016 3:45p Pulmonology Mehul Michele45.50 Severe persistent MD Eddy asthma, uncomplicated Office Visit 02/02/2016 4:00p Pulmonology Mehul Michele45.50 Severe persistent MD Eddy asthma, uncomplicated Office Visit 01/22/2016 1:00p Oncology Office Alanna J45.998 Other asthma Ary, DO Z86.711 Personal history of pulmonary embolism Office Visit 01/08/2016 11:00a Oncology Office Alanna Z86.711 Personal history Ary, DO of pulmonary embolism J45.998 Other asthma Office Visit 07/31/2015 9:45a Oncology Office Alanna Z86.711 Personal history Ary, DO of pulmonary embolism J45.998 Other asthma Office Visit 07/28/2015 3:00p Oncology Office Alanna Z86.711 Personal history Ary, DO of pulmonary embolism J45.998 Other asthma Office Visit 01/16/2015 8:50a Cardiology Office Candace Lorenzana 786.05 Shortness Of A., ANP Breath 307.47 Sleep Stage Or Sleep Arousal Dysfunction Other 415.19 Pulmonary Embolism And Infarction Other Office Visit 12/19/2014 9:30a Cardiology Office Candace Lorenzana 786.05 Shortness Of A., ANP Breath 307.47 Sleep Stage Or Sleep Arousal Dysfunction Other 415.19 Pulmonary Embolism And Infarction Other Office Visit 11/10/2014 11:29a Primary Care Aisha Santos, 415.19 Pulmonary Embolism Office M.D. 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 Office Visit 08/21/2009 8:30a Orthopaedic Office Brendan Cuello 736.1 Elo Arthur MD, FACS 836.0 Dislocation Knee Tear Of Medial Cartilage Or Meniscus Curren 715.16 Osteoarthrosis Localized Prim Lower Leg 726.10 Bursae & Tendon Disorders Shoulder Region Unspec Office Visit 07/28/2009 Orthopaedic Brendan Cuello 715.16 Osteoarthrosis 8:30a Office MD Jerson, FACS Localized Prim Lower Leg 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
--- NOTE | 2019-03-24 16:08 | UC ---
- Progress Note Progress Note: Patient Name: KEEGAN PEREZ Medical Record#: [id number] Ordering Physician: Lashell Thompson PEAR PICKER Acct.#: [id number] : 1955 Age: 63 Sex: M Location: [facility] Exam Date: 03/23/19 1351 ADM Status: REG ER Order Information: FOOT LEFT 3+ VWS Accession Number: [id number] CPT: 58875 Indication: Anterior and medial LEFT foot pain following injury. Previous surgery on the second digit. Comparison: March 21, 2011 Technique: AP, lateral, and oblique views LEFT foot. Report: Negative for fracture or malalignment. Postsurgical change of osteotomy at the second middle phalanx corresponding with provided history. 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 Small plantar fascia origin bone spur. Unremarkable soft tissue contours. IMPRESSION: #. Negative for fracture. <Electronically signed by Rusty Blanco MD in OV> 03/23/19 1440 Dictated By: Rusty Blanco MD Dictated Date/Time: 03/23/19 1440 Transcribed Date/Time: 03/23/19 1433 Copy to: CC:Skye Victoria MD; Rock Moreau MD; Lashell Thompson NP [facility]gent [facility] [address] [address] ph ([phone]) ph ([phone]) ph ([phone]) This report is only to be considered final once signed by the Provider(s) as displayed in the "<Electronically Signed by >" field (s). Absence of a signature indicates the report is in a draft status and still needs to be finalized. In the event this document was created by someone other than the signing Provider, the individual initiating the document will be listed in the "Entered by:" or "Dictated by:" francis. 1 of 1 Course/Dx - Diagnoses Provider Diagnoses: Contusion of foot, left Discharge - Sign-Out/Discharge Documenting (check all that apply): Post-Discharge Follow Up All imaging exams completed and their final reports reviewed: Yes - Discharge Plan Condition: Stable Disposition: HOME Patient Education Materials: Foot Contusion (ED) Referrals: Scott Thomas MD [Medical Doctor] - Rock Moreau MD [Primary Care Provider] - Additional Instructions: 1. use the jesús and post op shoe for support. 2. Hot and cold foot soaks to help increase the circulation 3. follow up with orthopedics if not improving - Billing Disposition and Condition Condition: STABLE Disposition: Home
== END 2019-03-23 15:01 | disposition home or self-care (01) ==
LOC: UCCORT 13:07
DX: S90.32XA Contusion of left foot, initial encounter (principal); W21.02XA Struck by soccer ball, initial encounter; Y93.66 Activity, soccer; Y92.9 Unspecified place or not applicable; Z88.6 Allergy status to analgesic agent; Z88.8 Allergy status to other drugs, medicaments and biological substances
CPT/HCPCS: 99212; G0463